=== PATIENT | female | born 1965 | race African-American/Black ===

== ENCOUNTER 2023-12-12 02:33 | Outpatient (CLI) | payer MEDICAID, SELFPAY | END 2023-12-12 02:34 | disposition home or self-care (01) | LOC: AMB 12-22 11:41 | PROVIDERS: PCP Family Medicine; Visit Provider Family Medicine | DX: R06.09 Other forms of dyspnea (principal); R13.10 Dysphagia, unspecified | CPT/HCPCS: A0425; A0429 ==

== ENCOUNTER 2023-12-12 03:16 | Emergency (ER) | payer MEDICAID, SELFPAY ==
[2023-12-12 03:20] VITALS: O2SAT 93
--- NOTE | 2023-12-12 03:20 | CT_ITS ---
Patient: KACIE KUMAR Facility:?[facility] [place] [facility] Patient ID:?[id number] Site Patient ID:?[id number]. Site :?[id number] Study:?CT-ST Neck W/99CC [id number]/26/2024 4:16:39 AM Ordering Physician:MIMA Final Report: Indication: Difficulty swallowing, tongue swelling Technique: CT neck soft tissue with IV contrast. Multiplanar reformats are included. Contrast: 99 mL Isovue 370 Comparison: None Findings: Enlarged hyperenhancing adenoids, palatine tonsils, and lingual tonsils. No abscess. No retropharyngeal effusion. Mild crowding of the posterior oropharyngeal airway without complete airway obstruction. Reactive adenopathy in both sides of the neck. There is a 2.5 centimeter right thyroid nodule. The remainder of the exam is unremarkable. The epiglottis and subglottic trachea are normal. Normal CT appearance of the tongue. Impression: Adenoiditis and tonsillitis. No abscess. Please note that all CT scans at this facility use dose modulation, iterative reconstruction, and/or weight-based dosing when appropriate to reduce radiation dose to as low as reasonably achievable. Dictated by Taisha Bautista MD @ 12/12/2023 4:42:13 AM Signed by:?Taisha Bautista MD @12/12/2023 4:42:13 AM (Electronic Signature)
[2023-12-12 03:22] VITALS: BP 153/92; BP 153/93; PULSE 83; PULSE 85; RESP 20; RESP 22; TEMP 37.3; O2SAT 89; O2SAT 92; BMI 34.8
--- NOTE | 2023-12-12 03:24 | ED_ITS ---
HPI - General Adult General Time Seen by Provider: 03:24 Date Seen: 12/12/23 Chief complaint: Shortness of Breath/Dyspnea Stated complaint: difficulty swallowing, short of breath Time Seen by Provider: 12/12/23 03:20 Source: patient, EMS and RN notes reviewed Mode of arrival: EMS Limitations: no limitations History of Present Illness HPI narrative: 50-year-old female who comes in today with right-sided neck pain that started last night. Pain with swallowing, feels like her throat is swollen. Denies voice changes, fevers, chills. No new medications. History of COPD, hypertension, diabetes. Related Data Home Medications Medication Instructions Recorded Confirmed aspirin 81 mg capsule 81 mg PO DAILY 12/12/23 12/12/23 atenolol 100 mg tablet 100 mg PO DAILY 12/12/23 12/12/23 atorvastatin 10 mg tablet 10 mg PO QHS 12/12/23 12/12/23 chlorthalidone 50 mg tablet 50 mg PO DAILY 12/12/23 12/12/23 glipizide 10 mg tablet 10 mg PO DAILY 12/12/23 12/12/23 ipratropium bromide 21 mcg (0.03 2 spray intranasal BID PRN 12/12/23 12/12/23 %) nasal spray spironolactone 50 mg tablet 50 mg PO DAILY 12/12/23 12/12/23 tiotropium bromide 2.5 2 inh inhalation DAILY 12/12/23 12/12/23 mcg/actuation mist for inhalation (Spiriva Respimat) Allergies Allergy/AdvReac Type Severity Reaction Status Date / Time diphenhydramine Allergy Severe Face and Verified 12/12/23 04:18 [From Benadryl] Throat Swelling lisinopril Allergy Intermediate Facial Verified 12/12/23 04:18 Swelling [facility] Medical History (Updated 12/12/23 @ 04:51 by Joselo Murphy MD) Thrombocytopenia ?D69.6 - Thrombocytopenia, unspecified (ICD-10) Acute respiratory failure with hypoxia ?J96.01 - Acute respiratory failure with hypoxia (ICD-10) Menometrorrhagia ?N92.1 - Excessive and frequent menstruation with irregular cycle (ICD-10) Uterine leiomyoma ?D25.9 - Leiomyoma of uterus, unspecified (ICD-10) Anemia ?D64.9 - Anemia, unspecified (ICD-10) Vitamin D deficiency ?E55.9 - Vitamin D deficiency, unspecified (ICD-10) Type 2 diabetes mellitus ?E11.9 - Type 2 diabetes mellitus without complications (ICD-10) Hypertension ?I10 - Essential (primary) hypertension (ICD-10) Surgical History (Updated 12/12/23 @ 03:37 by Alexis Lockhart RN) History of total abdominal hysterectomy ?Z90.710 - Acquired absence of both cervix and uterus (ICD-10) History of salpingoophorectomy ?Z90.79 - Acquired absence of other genital organ(s) (ICD-10) ?Z90.721 - Acquired absence of ovaries, unilateral (ICD-10) History of arthroscopic knee surgery ?Z98.890 - Other specified postprocedural states (ICD-10) History of section ?Z98.891 - History of uterine scar from previous surgery (ICD-10) History of appendectomy ?Z90.49 - Acquired absence of other specified parts of digestive tract (ICD- 10) S/P BRIDGER-BSO (total abdominal hysterectomy and bilateral salpingo-oophorectomy) ?Z90.710 - Acquired absence of both cervix and uterus (ICD-10) ?Z90.722 - Acquired absence of ovaries, bilateral (ICD-10) ?Z90.79 - Acquired absence of other genital organ(s) (ICD-10) Social History Smoking Status: Former smoker Second hand tobacco smoke exposure: No How often do you have a drink containing alcohol: never AUDIT-C Alcohol total score: 0 Non-prescribed substance use: former substance user Exam Narrative: Exam Narrative: General: Well-developed and well-nourished, no acute distress Head: Atraumatic and normocephalic Eyes: Pupils are equal reactive, extraocular motions intact, conjunctiva clear ENT: External nose and ears are normal, mild symmetric swelling of the posterior oropharynx, poorly visualized due to base of the tongue obscuring Neck: No midline cervical tenderness, full spontaneous range of motion the neck, trachea midline, tender adenopathy on the right Heart: Regular rate and rhythm no murmurs or thrills Lungs: Clear to auscultation bilaterally without wheezes or crackles Abdomen: Soft, nontender, nondistended with active bowel sounds Musculoskeletal: No tenderness, deformity, or edema Neurologic: Awake, alert, and oriented x3, no gross focal neurologic deficits, cranial nerves intact as tested Psych: Mood and affect are appropriate Skin: No rashes Const: Vital Signs, click to edit/add: Vital Signs - 24 hr 12/12/23 03:20 12/12/23 03:20 12/12/23 03:22 Temperature 99.1 F Pulse Rate Pulse Rate [Right Pulse Oximeter] 83 Respiratory Rate 22 Blood Pressure Blood Pressure [Ri ght Upper Arm] 153/93 H Pulse Oximetry 93 93 89 Oxygen Delivery Me thod Nasal Cannula Room Air Oxygen Flow Rate 1 12/12/23 03:22 Temperature Pulse Rate 85 Pulse Rate [Right Pulse Oximeter] Respiratory Rate 20 Blood Pressure 153/92 H Blood Pressure [Ri ght Upper Arm] Pulse Oximetry 92 Oxygen Delivery Me thod Oxygen Flow Rate Course Course ED Course: Patient seen examined, prior records reviewed. Patient presents with sensation of throat swelling and throat pain predominantly on the right side starting last night. On exam here, no voice changes, pain with swallowing but handling secretions, no lip or tongue swelling, anterior cervical adenopathy on the right. Concern for possible epiglottitis although patient is nontoxic and not having respiratory difficulty. Strep throat or peritonsillar abscess also possible. Labs are ordered along with CT scan of the neck. Toradol and Decadron ordered in will monitor closely. DuoNeb ordered as patient says she feels little short of breath does have some expiratory wheeze Reevaluation(s) Time of Reevaluation #1: 04:06 Reevaluation #1: Labs ordered in the panel interpreted by me demonstrate white count of 18.5, respiratory panel and basic panel pending. Time of Reevaluation #2: 04:22 Reevaluation #2: CT scan of the neck independently interpreted by me does not demonstrate any peritonsillar abscess, airway is widely patent. Basic panel is reassuring of a glucose of 266. Strep test is positive. Patient will be given Zosyn in the emergency department and discharged on Augmentin, follow-up with primary care. Consider steroid but given hyperglycemia and patient has known diabetes, as well as fairly mild swelling on exam and CT, concern for risk hyperglycemia awaiting benefit. Patient was given Decadron in the emergency department. Vital Signs Vital signs: Initial Vital Signs Respiratory Effort Normal, Spontaneous, Non-Labored 12/12/23 03:20 Respiratory Depth Normal 02/26/24 03:20 Respiratory Pattern Normal 12/12/23 03:20 Pulse Oximetry 93 12/12/23 03:20 Oxygen Delivery Method Nasal Cannula 12/12/23 03:20 Oxygen Flow Rate 1 12/12/23 03:20 Vital Signs Pulse Oximetry 93 12/12/23 03:20 Oxygen Delivery Method Nasal Cannula 12/12/23 03:20 Oxygen Flow Rate 1 12/12/23 03:20 Temperature 99.1 F 12/12/23 03:22 Pulse Rate 83 12/12/23 03:22 Respiratory Rate 20 12/12/23 03:22 Blood Pressure 153/93 H 12/12/23 03:22 Pulse Oximetry 92 12/12/23 03:22 Oxygen Delivery Method Room Air 12/12/23 03:22 Oxygen Flow Rate 1 12/12/23 03:20 Medications Administered Medications: Generic Name Dose Route Start Last Admin Trade Name Freq PRN Reason Stop Dose Admin Piperacillin Sod/Tazobactam 100 mls @ 100 mls/hr 12/12/23 04:22 12/12/23 04:28 Sod 3.375 gm/ Sodium Chloride IVPB 12/12/23 04:23 100 mls/hr ONCE ONE Administration Discontinued Medications Generic Name Dose Route Start Last Admin Trade Name Freq PRN Reason Stop Dose Admin Albuterol/Ipratropium 1 neb 12/12/23 03:30 12/12/23 04:28 Iprat-Albut 0.5-2.5 Mg/3 Ml Neb IH 12/12/23 03:31 1 neb ONCE ONE Administration Dexamethasone 10 mg 12/12/23 03:20 12/12/23 03:34 Dexamethasone 10 Mg/Ml Inj IVP 12/12/23 03:21 10 mg ONCE ONE Administration Ketorolac Tromethamine 15 mg 12/12/23 03:20 12/12/23 03:34 Ketorolac 15 Mg/Ml Inj IVP 12/12/23 03:21 15 mg ONCE ONE Administration Medical Decision Making Lab Data Labs: Lab Results 12/12/23 12/12/23 12/12/23 Range/Units 03:20 03:21 03:45 WBC 18.51 H (4.50-11.00) K/uL RBC 4.86 (4.00-5.20) m/uL Hgb 14.6 (12.0-16.0) gm/dL Hct 43.7 (33.0-51.0) % MCV 90 (80-100) fL MCH 30 (26-34) pg MCHC 33 (32-36) gm/dL RDW Coeff of Michael 11.7 (11.5-15.5) % Plt Count 257 (140-440) K/uL Neut % (Auto) 68.7 (42.0-72.0) % Lymph % (Auto) 20.5 (20-44) % [place] % (Auto) 8.8 (0.0-11.0) % Eos % (Auto) 1.0 (0.0-7.0) % Baso % (Auto) 0.2 (0.0-3.0) % Neut # (Auto) 12.70 H (1.7-7.0) K/uL Lymph # (Auto) 3.80 H (0.90-2.90) K/uL [place] # (Auto) 1.60 H (0.00-0.90) K/UL Eos # (Auto) 0.20 (0.00-0.50) K/uL Baso # (Auto) 0.00 (0.00-0.30) K/uL Abs Immat Gran (auto) 0.10 (0.00-0.30) K/uL Imm/Tot Granulo (auto) 0.8 % Sodium 138 (135-149) mmol/L Potassium 3.5 L (3.6-5.1) mmol/L Chloride 101 (96-114) mmol/L Carbon Dioxide 26 (20-32) mmol/L Anion Gap 11 (7-15) mEq/L BUN 21 (7-30) mg/dL Creatinine 0.9 (0.5-1.5) mg/dL Estimated Creat Clear 58.84 Estimated GFR 74 ml/min Glucose 266 H (60-115) mg/dL Calcium 10.1 (8.4-10.6) mg/dL SARS-CoV-2 (PCR) Negative SARS-CoV-2 (Negative) Influenza Type A (PCR) Negative PCR FLU A (Negative) Influenza Type B (PCR) Negative PCR FLU B (Negative) RSV (PCR) Negative PCR RSV (Negative) Group A Strep DNA DETECTED A (Not Detectd) POC Creatinine (0.6-1.3) mg/dl 12/12/23 Range/Units 03:48 WBC (4.50-11.00) K/uL RBC (4.00-5.20) m/uL Hgb (12.0-16.0) gm/dL Hct (33.0-51.0) % MCV (80-100) fL MCH (26-34) pg MCHC (32-36) gm/dL RDW Coeff of Michael (11.5-15.5) % Plt Count (140-440) K/uL Neut % (Auto) (42.0-72.0) % Lymph % (Auto) (20-44) % [place] % (Auto) (0.0-11.0) % Eos % (Auto) (0.0-7.0) % Baso % (Auto) (0.0-3.0) % Neut # (Auto) (1.7-7.0) K/uL Lymph # (Auto) (0.90-2.90) K/uL [place] # (Auto) (0.00-0.90) K/UL Eos # (Auto) (0.00-0.50) K/uL Baso # (Auto) (0.00-0.30) K/uL Abs Immat Gran (auto) (0.00-0.30) K/uL Imm/Tot Granulo (auto) % Sodium (135-149) mmol/L Potassium (3.6-5.1) mmol/L Chloride (96-114) mmol/L Carbon Dioxide (20-32) mmol/L Anion Gap (7-15) mEq/L BUN (7-30) mg/dL Creatinine (0.5-1.5) mg/dL Estimated Creat Clear Estimated GFR ml/min Glucose (60-115) mg/dL Calcium (8.4-10.6) mg/dL SARS-CoV-2 (PCR) (Negative) Influenza Type A (PCR) (Negative) Influenza Type B (PCR) (Negative) RSV (PCR) (Negative) Group A Strep DNA (Not Detectd) POC Creatinine 1.0 (0.6-1.3) mg/dl Discharge Plan Discharge Clinical Impression: Acute streptococcal pharyngitis, Acute tonsillitis Patient Disposition: Home, Self-Care Condition: Stable Instructions: Strep Throat (DC) Activity Level: No Restrictions Discharge Diet: Regular Prescriptions: No Action atorvastatin 10 mg tablet 10 mg PO QHS atenolol 100 mg tablet 100 mg PO DAILY spironolactone 50 mg tablet 50 mg PO DAILY glipizide 10 mg tablet 10 mg PO DAILY chlorthalidone 50 mg tablet 50 mg PO DAILY aspirin 81 mg capsule 81 mg PO DAILY ipratropium bromide 21 mcg (0.03 %) spray,non-aerosol 2 spray intranasal BID PRN Rx Instructions: administer into each nostril Spiriva Respimat 2.5 mcg/actuation mist 2 inh inhalation DAILY Follow Up/Referrals: Néstor Spears MD [Primary Care Provider] - Stand Alone Forms: [facility] Info Instructions
[2023-12-12] MEDS: dexAMETHasone 10 MG/ML inj IVP (03:34)
[2023-12-12] MEDS: KETOROLAC 15 MG/ML inj IVP (03:34)
[2023-12-12 03:58] LABS: Basophils Percent Auto 0.2 % (0.0-3.0); Hematocrit 43.7 % (33.0-51.0); Hemoglobin* 14.6 gm/dL (12.0-16.0); Immature Granulocytes Pct Auto 0.8 %; Lymphocytes Percent Auto 20.5 % (20-44); Mean Corpuscular HGB Conc 33 gm/dL (32-36); Mean Corpuscular Hemoglobin 30 pg (26-34); Mean Corpuscular Volume 90 fL (80-100); Monocytes Percent Auto 8.8 % (0.0-11.0); Neutrophils Percent Auto 68.7 % (42.0-72.0); Platelet Count* 257 K/uL (140-440); RDW Coefficient of Variation % 11.7 % (11.5-15.5); Red Blood Count 4.86 m/uL (4.00-5.20); White Blood Count* 18.51 K/uL (4.50-11.00)
[2023-12-12 03:59] LABS: Slide Review Reflex No
[2023-12-12 04:12] LABS: Chloride* 101 mmol/L (96-114)
[2023-12-12 04:13] LABS: Potassium* 3.5 mmol/L (3.6-5.1); Sodium* 138 mmol/L (135-149)
[2023-12-12 04:15] LABS: Creatinine* 0.9 mg/dL (0.5-1.5); Est. Creatinine Clearance* 58.84; Estimated Glomerular Filt Rate 74 ml/min
[2023-12-12 04:16] LABS: Anion Gap 11 mEq/L (7-15); Blood Urea Nitrogen* 21 mg/dL (7-30); Calcium* 10.1 mg/dL (8.4-10.6); Carbon Dioxide* 26 mmol/L (20-32); Glucose* 266 mg/dL (60-115)
[2023-12-12 04:20] LABS: Strep A DNA Probe* DETECTED (Not Detectd)
[2023-12-12] MEDS: IPRAT-ALBUT 0.5-2.5 MG/3 ML NEB 1 NEB IH (04:28)
[2023-12-12] MEDS: PIPERACILLIN/TAZOBACTAM 3.375 GM in 0.9 % SODIUM CHLORIDE Mini-bag 100 ML IVPB (04:28)
[2023-12-12 04:35] LABS: PCR FLU A Negative PCR FLU A (Negative); PCR FLU B Negative PCR FLU B (Negative); PCR RSV Negative PCR RSV (Negative); SARS PCR* Negative SARS-CoV-2 (Negative)
[2023-12-12 04:58] VITALS: TEMP 37.3
[2023-12-12 06:01] VITALS: BP 135/78; PULSE 87; RESP 20; TEMP 37.3; O2SAT 92
== END 2023-12-12 07:48 | disposition home or self-care (01) ==
PROVIDERS: Emergency Provider Family Medicine; PCP Family Medicine
DX: J02.0 Streptococcal pharyngitis (principal)
CPT/HCPCS: 36415; 70491; 80048; 82565; 85025; 87631; 87651; 94640; 94761; 96365; 96375; 99284; 99285; J1100; J1885; J2543; Q9967

== ENCOUNTER 2024-03-16 18:20 | Emergency (ER) | payer OTHER, SELFPAY ==
[2024-03-16 18:24] VITALS: BP 153/84; PULSE 83; RESP 20; TEMP 36.4; O2SAT 90; BMI 40.4
[2024-03-16 18:32] LABS: Appearance Urine Cloudy (Clear); Bilirubin Urine 1+ (Negative); Blood Urine 3+ (Negative); Color Urine Brown (Yellow); Glucose Urine Negative (Negative); Ketones Urine Trace (Negative); Leukocyte Esterase Urine Negative (Negative); Nitrite Urine Negative (Negative); Protein Urine 2+ (Negative); Specific Gravity Urine 1.025 (1.000-1.030); pH Urine 5.5 (5.0-8.5)
[2024-03-16 18:41] LABS: Bacteria Urine Moderate; RBC Urine 25-50 (0-2); Squamous Epithelial Cell Urine Moderate (None-Few)
[2024-03-16 18:42] LABS: Amorphous Sediment Urine Many
--- NOTE | 2024-03-16 18:44 | CRLHL7_ITS ---
For Patients: As a result of the Century Cures Act, medical imaging exams and procedure reports are released immediately into your electronic medical record. You may view this report before your referring provider. If you have questions, please contact your health care provider. INDICATION: Right flank pain, hematuria COMPARISON: None available TECHNIQUE: Routine axial CT images of the abdomen and pelvis were obtained without the use of intravenous or oral contrast per routine renal stone protocol. FINDINGS: 2 mm focal calcification at the right UVJ associated with mild ureterectasis and mild pelvicaliectasis. No left-sided hydronephrosis or ureterectasis. No definite urinary bladder calculi. Urinary bladder is decompressed. Noncontrast examination significantly limits evaluation of solid organs and intravascular structures. Morbid obesity. Diffuse hepatic steatosis and hepatomegaly. Tiny subcentimeter low-attenuation lesion in posterior right hepatic lobe most likely a tiny cyst and a larger cyst seen higher up in the right hepatic lobe in segment 7. Severe motion artifact in the lung bases, with mild appearing fibrosis. No pleural effusion. The adrenal glands, gallbladder, and spleen appear unremarkable. No peripancreatic fluid collection or stranding. No bowel obstruction. No obvious abnormality involving the prostate gland. No suspicious adenopathy. No abdominal aortic aneurysm. Mild atherosclerotic changes in the abdominal aorta. Subtle hypo attenuating focus in the anterior aspect of the L4 vertebral body, measuring 6 mm, nonspecific. IMPRESSION: 1. 2 mm right UVJ calcification, with mild ureterectasis and pelvocaliectasis. 2. Severe diffuse hepatic steatosis and hepatomegaly. 3. Subtle hypo attenuating focus in the anterior aspect of the L4 vertebral body, measuring 6 mm, nonspecific. Consider a follow-up CT or MRI if no prior available to document stability. Please note that all CT scans at this facility use dose modulation, iterative reconstruction, and/or weight-based dosing when appropriate to reduce radiation dose to as low as reasonably achievable. Dictated by Bart Kraft MD @ 03/16/2024 8:02:32 PM (Electronically Signed)
--- NOTE | 2024-03-16 18:46 | ED.GENADULT ---
HPI - General Adult General Chief complaint: Flank Pain Stated complaint: R flank pain Time Seen by Provider: 03/16/24 18:38 Source: patient and RN notes reviewed Mode of arrival: ambulatory Limitations: no limitations History of Present Illness HPI narrative: Patient is a 58-year-old woman who presents with some right-sided flank and low back pain, lower abdominal cramping, and brown urine since yesterday. She has not had dysuria, urgency or frequency. She has tried some ibuprofen. 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 She has not had nausea, vomiting, fevers. No history of kidney stones or significant UTIs. She status post hysterectomy. Past medical history of hypertension and diabetes. She does not drink. Related Data Home Medications ?Medication ?Instructions ?Recorded ?Confirmed aspirin 81 mg capsule 81 mg PO DAILY 12/12/23 03/16/24 atenolol 100 mg tablet 100 mg PO DAILY 12/12/23 03/16/24 atorvastatin 10 mg tablet 10 mg PO QHS 12/12/23 03/16/24 chlorthalidone 50 mg tablet 50 mg PO DAILY 12/12/23 03/16/24 glipizide 10 mg tablet 10 mg PO DAILY 12/12/23 03/16/24 ipratropium bromide 21 mcg (0.03 2 spray intranasal BID PRN 12/12/23 03/16/24 %) nasal spray spironolactone 50 mg tablet 50 mg PO DAILY 12/12/23 03/16/24 tiotropium bromide 2.5 2 inh inhalation DAILY 12/12/23 03/16/24 mcg/actuation mist for inhalation (Spiriva Respimat) Allergies Allergy/AdvReac Type Severity Reaction Status Date / Time diphenhydramine Allergy Severe Face and Verified 03/16/24 18:31 [From Benadryl] Throat Swelling lisinopril Allergy Intermediate Facial Verified 03/16/24 18:31 Swelling Review of Systems Status of ROS: Reports: 10 or more systems reviewed and unremarkable except as noted in History and below [facility] Medical History Thrombocytopenia ?D69.6 - Thrombocytopenia, unspecified (ICD-10) Acute respiratory failure with hypoxia ?J96.01 - Acute respiratory failure with hypoxia (ICD-10) Menometrorrhagia ?N92.1 - Excessive and frequent menstruation with irregular cycle (ICD-10) Uterine leiomyoma ?D25.9 - Leiomyoma of uterus, unspecified (ICD-10) Anemia ?D64.9 - Anemia, unspecified (ICD-10) Vitamin D deficiency ?E55.9 - Vitamin D deficiency, unspecified (ICD-10) Type 2 diabetes mellitus ?E11.9 - Type 2 diabetes mellitus without complications (ICD-10) Hypertension ?I10 - Essential (primary) hypertension (ICD-10) Surgical History History of total abdominal hysterectomy ?Z90.710 - Acquired absence of both cervix and uterus (ICD-10) History of salpingoophorectomy ?Z90.79 - Acquired absence of other genital organ(s) (ICD-10) ?Z90.721 - Acquired absence of ovaries, unilateral (ICD-10) History of arthroscopic knee surgery ?Z98.890 - Other specified postprocedural states (ICD-10) History of section ?Z98.891 - History of uterine scar from previous surgery (ICD-10) History of appendectomy ?Z90.49 - Acquired absence of other specified parts of digestive tract (ICD-10) S/P BRIDGER-BSO (total abdominal hysterectomy and bilateral salpingo-oophorectomy) ?Z90.710 - Acquired absence of both cervix and uterus (ICD-10) ?Z90.722 - Acquired absence of ovaries, bilateral (ICD-10) ?Z90.79 - Acquired absence of other genital organ(s) (ICD-10) Social History Smoking Status: Former smoker Do you use any of these nicotine containing products: None Second hand tobacco smoke exposure: No How often do you have a drink containing alcohol: never AUDIT-C Alcohol total score: 0 Non-prescribed substance use: former substance user Exam Narrative: Exam Narrative: Vital signs as noted above. In general, an alert, nontoxic woman. Head: Normocephalic, atraumatic. Eyes: Pupils are equal reactive. Extraocular movements are full. Conjunctivae are normal. ENT: Mucous membranes are moist. Throat is normal. Neck: Supple without lymphadenopathy. Heart: Regular rate and rhythm. No murmur or rub. Lungs: Clear bilaterally. No increased work of breathing, crackles or wheezes. No CVA tenderness. Abdomen: Soft and nontender. Extremities: Well perfused. No edema. No calf tenderness. Pulses intact. Neurologic: Patient is alert and oriented to person and place. Speech is fluent. Face is symmetric. Moves all extremities equally. Affect: Normal. Skin: Warm and dry. Well perfused. Const: Vital Signs, click to edit/add: Vital Signs - 24 hr 03/16/24 18:24 Temperature 97.6 F Pulse Rate [Pulse Oximeter] 83 Respiratory Rate 20 Blood Pressure [Le ft Upper Arm] 153/84 H Pulse Oximetry 90 Oxygen Delivery Me thod Room Air Course Course ED Course: Urinalysis was obtained. Diagnostic considerations include but are not limited to pyelonephritis, UTI, kidney stone, biliary colic, hepatitis, cholecystitis, appendicitis. Given her history, I am most suspicious of kidney stone, have ordered a CT scan without contrast. If this is negative for kidney stone, consider other diagnoses. Toradol 30 mg IM ordered for pain control. CT of the abdomen read as following by Radiology: FINDINGS: 2 mm focal calcification at the right UVJ associated with mild ureterectasis and mild pelvicaliectasis. No left-sided hydronephrosis or ureterectasis. No definite urinary bladder calculi. Urinary bladder is decompressed. Noncontrast examination significantly limits evaluation of solid organs and intravascular structures. Morbid obesity. Diffuse hepatic steatosis and hepatomegaly. Tiny subcentimeter low-attenuation lesion in posterior right hepatic lobe most likely a tiny cyst and a larger cyst seen higher up in the right hepatic lobe in segment 7. Severe motion artifact in the lung bases, with mild appearing fibrosis. No pleural effusion. The adrenal glands, gallbladder, and spleen appear unremarkable. No peripancreatic fluid collection or stranding. No bowel obstruction. No obvious abnormality involving the prostate gland. No suspicious adenopathy. No abdominal aortic aneurysm. Mild atherosclerotic changes in the abdominal aorta. Subtle hypo attenuating focus in the anterior aspect of the L4 vertebral body, measuring 6 mm, nonspecific. IMPRESSION: 1. 2 mm right UVJ calcification, with mild ureterectasis and pelvocaliectasis. 2. Severe diffuse hepatic steatosis and hepatomegaly. 3. Subtle hypo attenuating focus in the anterior aspect of the L4 vertebral body, measuring 6 mm, nonspecific. Consider a follow-up CT or MRI if no prior available to document stability. Findings discussed with patient: I neglected to discuss the L4 finding with her prior to discharge but did talk to her by phone. Suspect this stone will pass without instrumentation the did give her the number for Urology if symptoms do not improve over the next couple of days. Recommend ibuprofen 400 mg 3 times daily with food, she declines need for anything for nausea. For new symptoms such as severe uncontrolled pain, vomiting, fever chills, return any time to the emergency department. Primary care follow-up regarding L4 finding. Vital Signs Vital signs: Initial Vital Signs Temperature 97.6 F 03/16/24 18:24 Temperature Source Temporal Artery Scan 03/16/24 18:24 Pulse Rate 83 03/16/24 18:24 Pulse Rhythm Regularly Irregular 03/16/24 18:24 Respiratory Rate 20 03/16/24 18:24 Blood Pressure 153/84 H 03/16/24 18:24 Blood Pressure Mean 107 H 03/16/24 18:24 Blood Pressure Position Supine 03/16/24 18:24 Pulse Oximetry 90 03/16/24 18:24 Oxygen Delivery Method Room Air 03/16/24 18:24 Vital Signs Temperature 97.6 F 03/16/24 18:24 Pulse Rate 83 03/16/24 18:24 Respiratory Rate 20 03/16/24 18:24 Blood Pressure 153/84 H 03/16/24 18:24 Pulse Oximetry 90 03/16/24 18:24 Oxygen Delivery Method Room Air 03/16/24 18:24 Temperature 97.6 F 03/16/24 18:24 Pulse Rate 83 03/16/24 18:24 Respiratory Rate 20 03/16/24 18:24 Blood Pressure 153/84 H 03/16/24 18:24 Pulse Oximetry 90 03/16/24 18:24 Oxygen Delivery Method Room Air 03/16/24 18:24 Medications Administered Medications: Discontinued Medications Generic Name Dose Route Start Last Admin Trade Name Freq PRN Reason Stop Dose Admin Ketorolac Tromethamine 30 mg 03/16/24 18:44 03/16/24 18:51 Ketorolac 30 Mg/Ml Inj IM 03/16/24 18:45 30 mg ONCE ONE Administration Medical Decision Making Lab Data Labs: Lab Results 03/16/24 Range/Units 18:27 Urine Color Brown A (Yellow) Urine Appearance Cloudy A (Clear) Urine pH 5.5 (5.0-8.5) Ur Specific [place] 1.025 (1.000-1.030) Urine Protein 2+ A (Negative) Urine Glucose (UA) Negative (Negative) Urine Ketones Trace A (Negative) Urine Blood 3+ A (Negative) Urine Nitrite Negative (Negative) Urine Bilirubin 1+ A (Negative) Urine Urobilinogen 1.0 (0.2-1.0) Ur Leukocyte Esterase Negative (Negative) Urine RBC 25-50 A (0-2) Urine WBC 2-5 (0-5) Ur Squamous Epith Cells Moderate A (None-Few) Amorphous Sediment Many A (None) Urine Bacteria Moderate A (None) Discharge Plan Discharge Clinical Impression: Calculus of distal right ureter Patient Disposition: Home, Self-Care Condition: Improved Instructions: Ureteral Stones (ED) Additional Instructions: Continue with ibuprofen as needed. You have a small kidney stone, 2 mm in size. I would expect that this will pass without difficulty over the next few days. Strain your urine, make sure you are drinking plenty of fluids. If symptoms do not improve over the next few days, follow-up with urology. Call [phone] if you need to schedule with Urology. For severe uncontrolled pain, new symptoms such as vomiting, fever, return to the emergency department. Prescriptions: No Action atorvastatin 10 mg tablet 10 mg PO QHS atenolol 100 mg tablet 100 mg PO DAILY spironolactone 50 mg tablet 50 mg PO DAILY glipizide 10 mg tablet 10 mg PO DAILY chlorthalidone 50 mg tablet 50 mg PO DAILY aspirin 81 mg capsule 81 mg PO DAILY ipratropium bromide 21 mcg (0.03 %) spray,non-aerosol 2 spray intranasal BID PRN Rx Instructions: administer into each nostril Spiriva Respimat 2.5 mcg/actuation mist 2 inh inhalation DAILY Follow Up/Referrals: Néstor Spears MD [Primary Care Provider] - Stand Alone Forms: [employer] Info Instructions
[2024-03-16] MEDS: KETOROLAC 30 MG/ML inj IM (18:51)
--- OUTSIDE RECORDS SUMMARY | 2024-03-16 19:04 | XMS_ITS ---
Author Organization [facility] Address [address] [place] [id number] Care Team Providers Care Stapler Machine Name Role Phone Unavailable Unavailable Unavailable Surgery Details Not on file Complications Check Surgery Details section. Procedure Estimated Blood Loss Check Surgery Details section. Procedure Findings Check Surgery Details section. Procedure Specimens Taken Check Surgery Details section.
--- OUTSIDE RECORDS SUMMARY | 2024-03-16 19:04 | XMS_ITS | Referral Summary ---
Author Organization [facility] Address [address] [place] [address] Care Team Providers Care Casing Mixer Name Role Phone Néstor Spears M.D. Primary Care Provider [phone] Source Comments Patient records contain information from all sites at [facility]. For routine questions regarding patient records, call [phone] during business hours, M-F 8:00 AM - 5:00 PM Central Time. Record requests for emergency care only can be directed to [phone] at any time.[facility] Encounters Date Type Department Care Team Description 03/13/2024 Clinical Communication Department of Family Medicine, [facility], [address] [phone] Nehal Blevins R.N. Quality (D5) 03/08/2024 Clinical Communication Department of Family [facility], [facility], [address] [phone] Néstor Spears M.D. PandaDoc Form ([facility] - [id number]) 03/02/2024 Clinical Communication Department of Family [facility], [facility], [address] [phone] Néstor Spears M.D. PandaDoc Form ([facility] 02/27 ) 02/29/2024 Clinical Communication Department of Family Medicine, [facility], [address] [phone] Néstor Spears M.D. Med Question ([facility]); Follow-up Orders 02/27/2024 10:43 AM CDT - 02/27/2024 10:44 AM CDT Hospital Encounter Department of Radiology in [place], [place] [address] [place] [address] Néstor Spears M.D. Abnormal Mammogram Discharge Disposition: Home or Self Care 02/17/2024 Orders Only Department of Family Medicine, [facility], in [place], [place] [address] [place] [address] Néstor Spears M.D. Screening Cancer Colon 02/16/2024 11:00 AM CDT Office Visit Department of Family [facility], in [place], [place] [address] [place] [address] Néstor Spears M.D. Diabetes Mellitus Type 2 (HCC) (Primary Dx); Chronic Obstructive Pulmonary Disease Without Exacerbation (HCC); Chronic Respiratory Failure With Hypoxia (HCC); Morbid Obesity Body Mass Index 40.0-44.9 Adult (HCC); Elevated Aldosterone Level (HCC); Hypertension And Chronic Kidney Disease Stage 3; Moderate Or Severe Use Disorder (Dependence) Alcohol Remission (HCC); Screening Cancer Colon 02/13/2024 10:39 AM CDT - 02/13/2024 11:59 PM CDT Hospital Encounter Department of Laboratory Medicine in [place], [place] [address] [place] [address] Néstor Spears M.D. Diabetes Mellitus Type 2 (HCC) Discharge Disposition: Home or Self Care 02/07/2024 Clinical Communication Department of Family Medicine, [facility], in [place], [place] [address] [place] [address] Nehal Blevins R.N. Quality (D5) 01/11/2024 Clinical Communication Department of Family Medicine, [facility], in [place], [place] [address] [place] [address] Néstor Spears M.D. Form Review ([facility] ([facility] [id number] - 01/17/24-03/16/24) 12/27/2023 Clinical Communication Department of Family Medicine, [facility], in [place], [place] [address] [place] [address] Nehal Blevins R.N. Quality (D5) from Last 3 Months Allergies Active Allergy Reactions Criticality Noted Date Comments Benadryl Allergy Decongestant Edema (Reselect Reaction) 06/30/2022 Lisinopril Anaphylaxis,Rash High 10/01/2011 Lisinopril-Hydrochlorothiazi de Edema (Reselect Reaction) 06/30/2022 Medications Medication Sig Dispensed Refills Start Date End Date Status amLODIPine (NORVASC) 10 mg tablet Take 10 mg by mouth daily. [address] tablet Take 1 tablet by mouth daily. 2 Active naloxone (NARCAN) 4 mg/actuation nasal spray as needed. 2 Active nebulizer accessories kit Use as needed with your prescribed nebulizer medicine 2 Active ibuprofen (IBU) 600 mg tablet Take 1 tablet (600 mg total) by mouth every 6 (six) hours as needed for pain. 90 tablet 1 3 Active acetaminophen (TYLENOL) 500 mg tablet Take 1-2 tablets (500-1,000 mg total) by mouth every 6 (six) hours as needed for pain. 90 tablet 1 3 Active InnoSpire Essence device FOR HOME USE 3 Active losartan (COZAAR) 100 mg tablet Take 1 tablet (100 mg total) by mouth daily. 90 tablet 3 3 Active UNABLE TO FIND Oxygen for home use. Liters per minute: 1 per nasal cannula. Frequency of use: Continuous with portability.;. Length of need: 99 Months. Patient needs 3 L/min nasal cannula oxygen when sleeping. 3 Active albuterol 2.5 mg /3 mL nebulizer solution Inhale 3 mL (2.5 mg total) by nebulization every 4 (four) hours as needed for wheezing. 75 mL 3 3 Active atenoloL (TENORMIN) 100 mg tablet Take 1 tablet (100 mg total) by mouth daily. 90 tablet 3 3 Active chlorthalidone (HYGROTON) 50 mg tablet Take 1 tablet (50 mg total) by mouth daily. 90 tablet 3 3 Active flash glucose scanning reader (FreeStyle Tarsha 2 Dickens) misc 1 each (1 Device total) as directed. Diagnosis E11.9 1 each 3 Active ipratropium (ATROVENT) 21 mcg (0.03 %) nasal spray Administer 1-2 sprays into each nostril as needed for rhinitis. 90 mL 3 3 Active tiotropium (SPIRIVA RESPIMAT) 2.5 mcg/actuation inhaler Inhale 2 puffs daily. 4 g 11 3 Active albuterol (ProAir HFA) 90 mcg/actuation inhaler Inhale 2 puffs every 4 (four) hours as needed for wheezing or shortness of breath. 25.5 g 3 3 Active spironolactone (ALDACTONE) 50 mg tablet Take 1 tablet (50 mg total) by mouth daily. 90 tablet 3 3 Active atorvastatin (LIPITOR) 10 mg tablet take one tablet by mouth daily 90 tablet 3 4 Active liraglutide (Victoza 3-Alex) 0.6 mg/0.1 mL (18 mg/3 mL) injection Inject 0.6 mg under the skin daily. 9 mL 4 Active flash glucose sensor (FreeStyle Tarsha 2 Sensor) kit 1 each (1 kit total) every 14 (fourteen) days. Diagnosis E11.9 2 each 11 4 11/21/19 25 Active needle, disp, 25 gauge 25 gauge x 1 1/2 needle Use as instructed 100 each 11 4 Active pen needle, diabetic (BD Ultra-Fine Short Pen Needle) 31 gauge x 5/16 needle Use as directed once daily 100 each 3 4 Active glipiZIDE (GLUCOTROL XL) 10 mg 24 hr tablet Take 2 tablets (20 mg total) by mouth daily with breakfast. E11.9 180 tablet 3 4 Active glipiZIDE (GLUCOTROL XL) 10 mg 24 hr tablet Take 1 tablet (10 mg total) by mouth daily with breakfast. E11.9 90 tablet 3 3 02/16/20 24 Discontinued(Reo rder) sitaGLIPtin phosphate (JANUVIA) 100 mg tablet Take 1 tablet (100 mg total) by mouth daily. 90 tablet 3 3 02/16/20 24 Discontinued semaglutide (Ozempic) 0.25 mg or 0.5 mg (2 mg/3 mL) injection Inject 0.25 mg under the skin every 7 (seven) days. 3 mL 1 4 02/16/20 24 Discontinued(Cos t of medication) Hospital, Clinic, or Other Facility Administered Medication Ordered Dose Route Frequency Start Date End Date Status lidocaine 4 % cream 1 Application (LMX) 1 Application top As needed 08/03/2023 Acti ve Active Problems Problem Noted Date Diagnosed Date Chronic Obstructive Pulmonary Disease Without Ex acerbation 02/16/2024 Chronic Respiratory Failure With Hypoxia 024 Morbid Obesity Body Mass Index 40.0-44.9 Adult 0 02/16/2024 Elevated Aldosterone Level 02/16/2024 Hypertension And Chronic Kidney Disease Stage 3 02/16/2024 Obstructive Sleep Apnea Adult 08/26/2023 Hypoxia Sleep Related 08/26/2023 Diabetes Mellitus Type 2 07/25/2023 Obesity Body Mass Index 30-39.9 Adult 12/31/2022 Moderate Or Severe Use Disor tho (Dependence) Alcohol Remission 12/31/2022 Smoking Tobacco Use Personal History 12/31/2022 Asthma Moderate Persistent 10/22/2022 Stroke Cerebrovascular Accident Personal History 09/14/2022 Other Stimulant Mild Use Disorder (Abuse) In Rem ission 04/27/2022 Hypertension Essential Primary 06/04/2015 Overview: Deficiency Vitamin D 07/17/2012 Resolved Problems Problem Noted Date Diagnosed Date Resolved Date 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 0 12/31/2022 Immunizations Name Administration Dates Next Due HepB Adult 02/16/2024(Deferred: Patient fitz allen) Influenza TIV (IM) 07/12/2012 Influenza, Injectable, Quadrivalent 08/22/2014 Influenza, Seasonal, Injectable 07/12/2012 PCV20 08/06/2022 PPD Test 09/16/2010 RZV (SHINGRIX) 02/16/2024(Deferred: Patient fitz allen) SARS-COV-2 (COVID-19) - PFIZ ER TS(Discontinued)(12 years or older) 08/06/2022 Tdap 04/27/2022,09/16/2010 influenza vaccine QV(FLUBLOK ) (18 years or older) (PF) 08/03/2023 influenza vaccine quad (FLUZONE/FLUARIX) (6 months and older)(PF) 08/06/2022 Social History Tobacco Use Types Packs/Day Years Used Date Smoking Tobacco: Former Cigarettes 0.3 43.9 S tarted: 05/05/1980 Passive Smoke Exposure: Never Smokeless Tobacco: Never Alcohol Use Standard Drinks/Week Comments Never 0 (1 standard drink = 0.6 oz pur e alcohol) Humiliation, Afraid, Rape, and Kick questionnair e Answer Date Recorded Within the last year, have y ou been afraid of your partner or ex-partner? No 08/06/2022 Within the last year, have y ou been humiliated or emotionally abused in other ways by your partner or ex-partner? No Within the last year, have y ou been kicked, hit, slapped, or otherwise physically hurt by your partner or ex-partner? No 08/06/2022 Within the last year, have y ou been raped or forced to have any kind of sexual activity by your partner or ex-partner? No 08/06/2022 Social Connection and Isolat ion Panel [NHANES] Answer Date Recorded In a typical week, how many times do you talk on the phone with family, friends, or neighbors? More than three times a week 08/06/2022 How often do you get togethe r with friends or relatives? Three times a week 08/06/2022 How often do you attend chur or mormon services? More than 4 times per year 08/06/2022 Do you belong to any clubs o r organizations such as confucianism groups, unions, fraternal or athletic groups, or school groups? Yes 08/06/2022 How often do you attend meet ings of the clubs or organizations you belong to? More than 4 times per year 08/06/2022 Are you , , di vorced, , never , or living with a partner? 08/06/2022 AUDIT-C Answer Date Recorded Q1: How often do you have a drink containing alc ohol? Never 08/06/2022 Average Number of Drinks Not on file 022 Frequency of Binge Drinking Not on file 07/18 Overall Financial Resource Strain (CARDIA) Answe r Date Recorded How hard is it for you to pa y for the very basics like food, housing, medical care, and heating? Not hard at all 08/25/2023 PHQ-2 Answer Date Recorded PHQ-2 Score 0 02/16/2024 [facility] - Occupational Stress Questionnaire Answer Date Recorded Do you feel stress - tense, restless, nervous, or anxious, or unable to sleep at night because your mind is troubled all the time - these days? Only a little 08/06/2022 Exercise Vital Sign Answer Date Recorde d On average, how many days pe r week do you engage in moderate to strenuous exercise (like a brisk walk)? 0 days 08/25/2023 On average, how many minutes do you engage in exercise at this level? 20 min 08/25/2023 Hunger Vital Sign Answer Date Recorded Within the past 12 months, y ou worried that your food would run out before you got the money to buy more. Never true 08/25/20 23 Within the past 12 months, t he food you bought just didn't last and you didn't have money to get more. Never true 08/25/2023 PRAPARE - Transportation Answer Date Re corded In the past 12 months, has l ack of transportation kept you from medical appointments or from getting medications? No 06/2023 In the past 12 months, has l ack of transportation kept you from meetings, work, or from getting things needed for daily living? No 08/25/2023 Nutrition Answer Date Recorded On average, how many serving s of fruits and vegetables do you eat per day (serving size is equal to 1 cup or approximately the size of a tennis ball)? 3-5 08/25/2023 Dental Answer Date Recorded Dental: Regular Dentist Yes 08/06/20 22 Employment Answer Date Recorded Employment status Permanently disabled Housing Stability Answer Date Recorded What is your living situation today? I have a [facility] place to live 08/25/2023 Education Answer Date Recorded What is the highest level of school you have completed or the highest degree you have received? 12th grade 03/04/2020 Sex and Gender Information Value Date Recorded Sex Assigned at Female 06/30/2022 1:16 PM CDT Gender Identity Female 06/30/2022 1:16 PM CDT Sexual Orientation Not on file Last Filed Vital Signs Vital Sign Reading Time Taken Comments Blood Pressure 113/72 02/16/2024 10:53 AM CDT Pulse 86 02/16/2024 10:53 AM CDT Temperature 35.8 ??C (96.4 ??F) 02/16/2024 10:53 AM C DT Respiratory Rate 16 02/16/2024 10:53 AM CDT Oxygen Saturation 92% 12/31/2022 11:08 AM CDT Inhaled Oxygen Concentration - - Weight 90.9 kg (200 lb 8.1 oz) 02/16/2024 10:53 AM CDT Height 153.3 cm (5' 0.35) 02/16/2024 10:53 AM C DT Body Mass Index 38.7 02/16/2024 10:53 AM CDT Plan of Treatment Upcoming Encounters Date Type Department Care Team (Late st Contact Info) Description 04/16/2024 2:45 PM CDT Office Visit Department of Family Medicine in [place], [place] [address], [place] [address] Néstor Spears M.D. [address] [place] [phone] Mallika Evangelista, PharmStaciaD., BCACP, R.Ph. [address], [place] [address] Medical Devices Implanted Type Area Press Hand Supervisor Device Identifier Shelf Expiration Date Model / Serial / Lot Hardware E.G. Pins/Screws/Ro ds Hardware e.g. pins/screws/r ods Arm Description:Left arm Procedures Procedure Name Priority Date/Time Associated Diagnosis Comments BI BREAST DIAGNOSTIC LEFT WITH TOMOSYNTHESIS RAD - Routine (most inpatients and all outpatients) 02/27/2024 11:01 AM CDT Abnormal Mammogram HEMOGLOBIN A1C, B Routine 02/13/2024 10: 46 AM CDT Diabetes Mellitus Type 2 (HCC) BASIC METABOLIC PANEL, S/P Routine 10/19/2023 12:32 PM FACE PAINTER Hypertension Essential Primary ALBUMIN, RANDOM, U Routine 07/25/2023 10 :59 AM CDT Diabetes Mellitus Type 2 (HCC) LIPID PANEL, S Routine 08/10/2022 8:17 AM CDT Hyperlipidemia from Last 3 Months or Most Recently Relevant to Health Maintenance Results * BI Breast Diagnostic Left with Tomosynthesis (02/27/2024 11:01 AM CDT) Anatomical Region Laterality Modality Breast, Breast Imaging RST L OS, Breast Imaging ARZ LOS, Breast Imaging FLA LOS Left Mammography Impressions 02/27/2024 11:29 AM CDT No mammographic findings of malignancy. RECOMMENDATION: ??Annual Screening Mammogram ASSESSMENT: ??BI-RADS: 1: Negative. Narrative 02/27/2024 11:29 AM CDT EXAM: ??BI BREAST DIAGNOSTIC LEFT WITH TOMOSYNTHESIS INDICATION: ??Abnormal screening mammogram COMPARISON: ??Prior exam(s) were available and reviewed for comparison. DENSITY: ??c. The breast(s) are heterogeneously dense, which may obscure small masses. FINDINGS: ??Left breast diagnostic mammogram including spot compression and exaggerated CC views show resolution of previous asymmetry into normal fibroglandular tissue. Nothing suspicious. Therefore, ultrasound was not done. The R.T. discussed findings with patient. Procedure Note Nathan Childs M.D. - 02/27/2024 EXAM: BI BREAST DIAGNOSTIC LEFT WITH TOMOSYNTHESIS INDICATION: Abnormal screening mammogram COMPARISON: Prior exam(s) were available and reviewed for comparison. DENSITY: c. The breast(s) are heterogeneously dense, which may obscuresmall masses. FINDINGS: Left breast diagnostic mammogram including spot compression andexaggerated CC views show resolution of previous asymmetry into normalfibroglandular tissue. Nothing suspicious. Therefore, ultrasound was notdone. The R.T. discussed findings with patient. IMPRESSION: No mammographic findings of malignancy. RECOMMENDATION: Annual Screening Mammogram ASSESSMENT: BI-RADS: 1: Negative. Néstor Spears M.D. IMG BI PROCEDURES * (ABNORMAL) Hemoglobin A1c (02/13/2024 10:46 AM CDT) Hemoglobin A1c, B 10.5(H) 4.2 - 5.6 % 02/13/2024 1:48 PM CDT OWAT Comment: Hemoglobin A1c values greater than or equal to 6.5 percent are diagnostic for diabetes mellitus. ??Diagnosis should be confirmed by repeat testing. ??In diabetic patients, HbA1c goals should be discussed with healthcare provider. Blood (Blood, Venous) 02/13/2024 10:46 AM CDT 02/13/2024 1:11 PM CDT Néstor Spears M.D. LAB BLOOD ADD-ON [facility] [address] [place] [address], [facility] OWAT [facility] in [place] [address] [address] * (ABNORMAL) Basic Metabolic Panel (10/19/2023 12:32 PM FACE PAINTER) Potassium, P 4.0 3.6 - 5.2 mmol/L 10/19/2023 5:31 PM FACE PAINTER OWAT Sodium, P 141 135 - 145 mmol/L 10/19/2023 5:31 PM FACE PAINTER OWAT Chloride, P 102 98 - 107 mmol/L 10/19/2023 5:31 PM FACE PAINTER OWAT Bicarbonate, P 28 22 - 29 mmol/L 10/19/2023 5:31 PM FACE PAINTER OWAT Anion Gap, P 11 7 - 15 10/19/2023 5:31 PM FACE PAINTER OWAT BUN (Blood Urea Nitrogen), P 20 6 - 21 mg/dL 10/19/2023 5:31 PM FACE PAINTER OWAT Creatinine 0.80 0.59 - 1.04 mg/dL 10/19/2023 5:31 PM FACE PAINTER OWAT Estimated GFR (eGFR) 85 >=60 mL/min/BSA 10/19/2023 5:31 PM FACE PAINTER OWAT Comment: Estimated GFR calculated using the 2020 CKD_EPI creatinine equation. Calcium, Total, P 9.9 8.6 - 10.0 mg/dL 10/19/2023 5:31 PM FACE PAINTER OWAT Glucose, P 323(H) 70 - 140 mg/dL 10/19/2023 5:31 PM FACE PAINTER OWAT Blood (Blood, Venous) 10/19/2023 12:32 PM FACE PAINTER 10/19/2023 5:31 PM FACE PAINTER Néstor Spears M.D. LAB BLOOD ADD-ON Performing Organization Address City/[facility]/ZIP Co de Phone Number [facility] [address] [place] [address], [facility] OWAT [facility] [place] [address] [place] [phone] * (ABNORMAL) Albumin, Random, Urine (07/25/2023 10:59 AM CDT) Microalbumin 2557.0 mg/L 07/25/2023 2:04 PM CDT OWAT Creatinine 172 mg/dL 07/25/2023 11:48 AM CDT OWAT Albumin/Creatinin e Ratio 1487(H) <25 mg/g 07/25/2023 2:04 PM CDT OWAT Urine (Urine, Midstream) 07/25/2023 10:59 AM CDT 07/25/2023 10:59 AM CDT Néstor Spears M.D. LAB URINE ORDERABLES Performing Organization Address City/[facility]/ZIP Co de Phone Number [facility] [address] [place] [id number], [facility]AT [facility] [place] [address] [place] [address] * (ABNORMAL) Lipid Panel (08/10/2022 8:17 AM CDT) Triglycerides 115 mg/dL 08/10/2022 12:30 PM CDT OWAT Comment: ----REFERENCE VALUE---- Normal: <150 mg/dL Borderline High: 150-199 mg/dL High: 200-499 mg/dL Very High: > or =500 mg/dL Cholesterol, Total 102 mg/dL 2021 12:30 PM CDT OWAT Comment: ----REFERENCE VALUE---- Desirable: < 200 mg/dL Borderline High: 200 - 239 mg/dL High: > or = 240 mg/dL Cholesterol, LDL, Calculated 40 mg/dL 08/10/2022 12:30 PM CDT OWAT Comment: ----REFERENCE VALUE---- Desirable: <100 mg/dL Above Desirable: 100-129 mg/dL Borderline High: 130-159 mg/dL High: 160-189 mg/dL Very High: >=190 mg/dL ----ADDITIONAL INFORMATION---- LDL cholesterol calculated using the Sabillon/NIH equation. Cholesterol, HDL 41(L) >=50 mg/dL 08/10/20 12:30 PM CDT OWAT Cholesterol, Non-HDL, Calculated 61 mg/dL 08/10/2022 12:30 PM CDT OWAT Comment: ----REFERENCE VALUE---- Desirable: <130 mg/dL Above Desirable: 130-159 mg/dL Borderline High: 160-189 mg/dL High: 190-219 mg/dL Very High: > or =220 mg/dL Fasting (8 HR or more) Yes 08/10/2022 11:19 AM CDT OWAT Blood (Blood, Venous) 08/10/2022 8:17 AM CDT 08/10/2022 11:19 AM CDT Néstor Spears M.D. LAB BLOOD ADD-ON [facility] [address] [place] [address], [place] OWAT [facility] [place] [address] [place] [address] from Last 3 Months or Most Recently Relevant to Health Maintenance Care Teams Casing Mixer Relationship Specialty Start Date End Date Néstor Spears M.D. [address] [place] [phone] PCP - General Family Medicine 07/23/22
--- OUTSIDE RECORDS SUMMARY | 2024-03-16 19:04 | XMS_ITS | Clinical Summary ---
Author Organization [facility] Address [address] [place] [address] Care Team Providers Care Paralegal Assistant Name Role Phone Néstor Spears M.D. Primary Care Provider Source Comments Patient records contain information from all sites at [facility]. For routine questions regarding patient records, call [phone] during business hours, M-F 8:00 AM - 5:00 PM Central Time. Record requests for emergency care only can be directed to [phone] at any time.[facility] Allergies Active Allergy Reactions Criticality Noted Date [...] 3 3 Active flash glucose scanning reader (Bioceptive Tarsha 2 [place]) misc 1 each (1 Device total) as [...] Date 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 0 12/31/2022 Encounters Date Type Department Care Team Description 03/13/2024 Clinical Communication Department of Family Medicine, [facility], [address] [phone] Nehal Blevins R.N. Quality (D5) 03/08/2024 Clinical Communication Department of [facility], [address] [phone] Néstor Spears M.D. PandaDoc Form ([facility] - [id number]) 03/02/2024 Clinical Communication Department of [facility], [facility], [address] [phone] Néstor Spears M.D. PandaDoc Form ([facility] order 02/27 ) 02/29/2024 Clinical Communication Department of [facility], [facility], [address] [phone] Néstor Spears M.D. Med Question (Discontinued medication- [facility]); Follow-up Orders 02/27/2024 10:43 AM CDT - 02/27/2024 10:44 AM CDT Hospital Encounter Department of Radiology in [place], [place] [address] [place] [address] Néstor Spears M.D. Abnormal Mammogram Discharge Disposition: Home or Self Care 02/17/2024 [facility] [address] [phone] Néstor Spears M.D. Screening Cancer Colon 02/16/2024 11:00 AM CDT Office Visit Department of [facility], [address] [address] Néstor Spears M.D. Diabetes Mellitus Type 2 [...] CDT Hospital Encounter Department of Laboratory Medicine [address] [address] Néstor Spears M.D. Diabetes Mellitus Type 2 (HCC) Discharge Disposition: Home or Self Care 02/07/2024 Clinical Communication Department of [facility], [address] [address] Nehal Blevins RStaciaNStacia Quality (D5) 01/11/2024 Clinical Communication Department of [facility], [address] [address] Néstor Spears M.D. Form Review ([facility] ([facility] [id number] - 01/17/24-03/16/24) 12/27/2023 Clinical Communication Department of [facility], [address] [address] Nehal Blevins, R.NStacia Quality (D5) from Last 3 Months Immunizations Name Administration Dates Next Due HepB Adult 02/16/2024(Deferred: Patient dec ision) Influenza TIV (IM) 07/12/2012 Influenza, Injectable, Quadrivalent 08/22/2014 Influenza, Seasonal, Injectable 07/12/2012 PCV20 08/06/2022 PPD Test 09/16/2010 RZV (SHINGRIX) 02/16/2024(Deferred: Patient fitz allen) SARS-COV-2 (COVID-19) - PFIZ ER TS(Discontinued)(12 years or older) 08/06/2022 Tdap 04/27/2022,09/16/2010 influenza vaccine QV(FLUBLOK ) (18 years or older) (PF) 08/03/2023 influenza vaccine quad (FLUZONE/FLUARIX) (6 months and older)(PF) 08/06/2022 Family History Medical History Relation Name Comments Stroke Brother 1 Stroke Brother 2 hugh Coronary artery disease Father Breast cancer Mother janna Hypertension Mother janna Stroke Mother janna Breast cancer Mother's Sister Relation Name Status Comments Brother 1 Alive Brother 2 hugh Father Mother janna Mother's Sister Social History Tobacco Use Types Packs/Day Years [...] week 08/06/2022 How often do you attend [facility] or pentecostalism services? More than 4 times per year 08/06/2022 Do you belong to any clubs o r organizations such as rastafari groups, unions, fraternal or athletic groups, or [...] Answer Date Recorded PHQ-2 Score 0 02/16/2024 [facility] - Occupational Stress Questionnaire Answer Date Recorded [...] Date Recorded Dental: Regular Dentist Yes 08/06/20 Employment Answer Date Recorded Employment status Permanently disabled Housing Stability Answer Date Recorded What is your living situation today? I have a [facility] place to live 08/25/2023 Education Answer Date [...] Office Visit Department of Family Medicine in [place], [place] [address] [place] [address] Néstor Spears M.D. [address] [place] [phone] Mallika Evangelista, Pharm.D., BCACP, R.Ph. [address] [place] [address] Health Maintenance Due Date Last Done Comments CT Colonography 1965 Cologuard 1965 Colonoscopy 1965 Colorectal Cancer Screening 1965 Dilated Eye Exam 1965 FIT 1965 Hepatitis C Screening 1965 Hepatitis B Vaccines (1 of 3 - 19+ 3-dose series) 1984 Zoster Vaccines (1 of 2) 2015 Hemoglobin A1C 05/14/2024 02/13/2024, 08/17, 06/14/2023 Urine Albumin 07/25/2024 07/25/2023 Diabetic Office Visit with F oot Exam 10/06/2024 10/06/2023 Creatinine Level (Kidney Fun ction Test) 10/19/2024 10/19/2023, 07/25/2023, 06/14/2023, Additional history exists Potassium Level 10/19/2024 10/19/2023, 10/0 06/2023, 06/14/2023, Additional history exists Sodium Level 10/19/2024 10/19/2023, 10/0 06/2023, 06/14/2023, Additional history exists Office Visit for Blood Press ure Check / Re-check 02/15/2025 02/16/2024 Visit: Chronic Disease, age 18+ 02/15/2025 , 02/16/2024 Mammogram 02/26/2025 02/27/2024, 11/18, 08/12/2022 Lipid (Cholesterol) Screening 08/10/2027 08/10/2022, 04/27/2022 DTaP,Tdap,and Td Vaccines (3 - Td or Tdap) 04/27/2032 04/27/2022, 09/16/2010 Pneumococcal vaccine (0-64 years) Completed 022 COVID-19 Vaccine Completed 08/03/2023, , 06/15/2021 Influenza Vaccine Completed 08/03/2023, , 08/22/2014, Additional history exists Depression Screening (Annual PHQ-2) Completed 02/16/2024, 02/16/2024 Medical Devices Implanted Type Area Container Coordinator Device Identifier Shelf Expiration Date Model / [...] METABOLIC PANEL, S/P Routine 10/19/2023 12:32 PM COFFEE WEIGHER Hypertension Essential Primary ALBUMIN, RANDOM, U Routine [...] CDT Néstor Spears M.D. LAB BLOOD ADD-ON [facility] [address] [place] [address], [place] OW[place] [facility] [place] [address] [place] [address] * (ABNORMAL) Basic Metabolic Panel (10/19/2023 12:32 PM COFFEE WEIGHER) Potassium, P 4.0 3.6 - 5.2 mmol/L 10/19/2023 5:31 PM COFFEE WEIGHER OWAT Sodium, P 141 135 - 145 mmol/L 10/19/2023 5:31 PM COFFEE WEIGHER OWAT Chloride, P 102 98 - 107 mmol/L 10/19/2023 5:31 PM COFFEE WEIGHER OWAT Bicarbonate, P 28 22 - 29 mmol/L 10/19/2023 5:31 PM COFFEE WEIGHER OWAT Anion Gap, P 11 7 - 15 10/19/2023 5:31 PM COFFEE WEIGHER OWAT BUN (Blood Urea Nitrogen), P 20 6 - 21 mg/dL 10/19/2023 5:31 PM COFFEE WEIGHER OWAT Creatinine 0.80 0.59 - 1.04 mg/dL 10/19/2023 5:31 PM COFFEE WEIGHER OWAT Estimated GFR (eGFR) 85 >=60 mL/min/BSA 10/19/2023 5:31 PM COFFEE WEIGHER OWAT Comment: Estimated GFR calculated using the 2020 CKD_EPI creatinine equation. Calcium, Total, P 9.9 8.6 - 10.0 mg/dL 10/19/2023 5:31 PM COFFEE WEIGHER OWAT Glucose, P 323(H) 70 - 140 mg/dL 10/19/2023 5:31 PM COFFEE WEIGHER OWAT Blood (Blood, Venous) 10/19/2023 12:32 PM COFFEE WEIGHER 10/19/2023 5:31 PM COFFEE WEIGHER Néstor Spears M.D. LAB BLOOD ADD-ON [facility] [address] [place] [address], [place] [facility] [address] [place] [address] * (ABNORMAL) Albumin, Random, Urine (07/25/2023 10:59 AM CDT) Microalbumin 2557.0 mg/L 07/25/2023 2:04 PM CDT OWAT Creatinine 172 mg/dL 07/25/2023 11:48 AM CDT OWAT Albumin/Creatinin e Ratio 1487(H) <25 mg/g 07/25/2023 2:04 PM CDT OWAT Urine (Urine, Midstream) 07/25/2023 10:59 AM CDT 07/25/2023 10:59 AM CDT Néstor Spears M.D. LAB URINE ORDERABLES [facility] [address] [place] [address], [facility] OWAT [facility] [place] [address] [place] [address] * (ABNORMAL) Lipid Panel (08/10/2022 8:17 AM [...] CDT Néstor Spears M.D. LAB BLOOD ADD-ON [facility] [address] [place] [address], [place] [facility] [place] [address] [place] [address] from Last 3 Months or Most Recently Relevant to Health Maintenance Care Teams Paralegal Assistant Relationship Specialty Start Date End Date Néstor Spears M.D. [address] [place] [phone] PCP - General Family Medicine 07/23/22
--- OUTSIDE RECORDS SUMMARY | 2024-03-16 19:05 | XMS_ITS | Encounter Summary ---
Author Organization [facility] Address [address] [place] [address] Care Team Providers Care Policy Value Calculator Name Role Phone Néstor Spears M.D. Primary Care Provider [phone] Reason for Referral * Outpatient (Routine) - Closed Specialty Diagnoses / Procedures Referred By Parth kennedy Referred To Contact Diagnoses Screening Mammogram Breast Cancer Procedures BI Breast Screening Bilateral with Tomosynthesis Néstor Spears M.D. [address] [place] [address] [facility] Region Referral ID Status Reason Start Date Expiration Date Visits Re quested Visits Authorized [id number] Closed 08/04/2023 08/03/2024 1 1 CIATE PROFESSOR COMPUTER SCIENCE Reason for Visit * Outpatient (Routine) - Closed Specialty Diagnoses / Procedures Referred By Parth kennedy Referred To Contact Diagnoses Screening Mammogram Breast Cancer Procedures BI Breast Screening Bilateral with Tomosynthesis Néstor Spears M.D. [address] [place] [address] [facility] Region Referral ID Status Reason Start Date Expiration Date Visits Re quested Visits Authorized [id number] Closed 08/04/2023 08/03/2024 1 1 Encounter Details Date Type Department Care Team (Latest Contact Info) Description 12/07/2023 9:09 AM ASSOCIATE PROFESSOR COMPUTER SCIENCE - 12/07/2023 11:59 PM ASSOCIATE PROFESSOR COMPUTER SCIENCE Hospital Encounter Department of Radiology in [place], [place] [address] COUNT INCLUDES THE [facility] [address] Néstor Spears M.D. [address] [place] [address] Screening Mammogram Breast Cancer Discharge Disposition: Home or Self Care Social History Tobacco Use Types Packs/Day Years [...] 08/06/2022 How often do you attend chur ch or methodist services? More than 4 times per year 08/06/2022 Do you belong to any clubs o r organizations such as hindu groups, unions, fraternal or athletic groups, or [...] PHQ-2 Answer Date Recorded PHQ-2 Score 0 10/22/2022 [facility] - Occupational Stress [...] your living situation today? [facility] 08/25/2023 Education Answer Date Recorded What is the highest level of school you have completed or the highest degree you have received? 12th grade 03/04/2020 Sex and Gender Information Value Date Recorded Sex Assigned at Female 06/30/2022 1:16 PM CDT Gender Identity Female 06/30/2022 1:16 PM CDT Sexual Orientation Not on file documented as of this encounter Medications at Time of Discharge Medication Sig Dispensed Refills Start Date End Date acetaminophen (TYLENOL) 500 mg tablet Take 1-2 tablets (500-1,000 mg total) by mouth every 6 (six) hours as needed for pain. 90 tablet 1 10/22/2022 albuterol (ProAir HFA) 90 mcg/actuation inhaler Inhale 2 puffs every 4 (four) hours as needed for wheezing or shortness of breath. 25.5 g 3 10/06/2023 albuterol 2.5 mg /3 mL nebulizer solution Inhale 3 mL (2.5 mg total) by nebulization every 4 (four) hours as needed for wheezing. 75 mL 3 06/14/2023 amLODIPine (NORVASC) 10 mg tablet Take 10 mg by mouth daily. 04/27/[address] tablet Take 1 tablet by mouth daily. 04/27/2022 atenoloL (TENORMIN) 100 mg tablet Take 1 tablet (100 mg total) by mouth daily. 90 tablet 3 06/14/2023 atorvastatin (LIPITOR) 10 mg tablet take one tablet by mouth daily 90 tablet 3 10/21/2023 chlorthalidone (HYGROTON) 50 mg tablet Take 1 tablet (50 mg total) by mouth daily. 90 tablet 3 07/06/2023 flash glucose scanning reader (FreeStyle Tarsha 2 [place]) misc 1 each (1 Device total) as directed. Diagnosis E11.9 1 each 07/25/2023 flash glucose sensor (FreeStyle Tarsha 2 Sensor) kit 1 each (1 kit total) every 14 (fourteen) days. Diagnosis E11.9 2 each 11 11/22/2023 11/21/2024 ibuprofen (IBU) 600 mg tablet Take 1 tablet (600 mg total) by mouth every 6 (six) hours as needed for pain. 90 tablet 1 10/22/2022 [employer] Essence device FOR HOME USE 11/09/2022 ipratropium (ATROVENT) 21 mcg (0.03 %) nasal spray Administer 1-2 sprays into each nostril as needed for rhinitis. 90 mL 3 09/09/2023 liraglutide (Victoza 3-Alex) 0.6 mg/0.1 mL (18 mg/3 mL) injection Inject 0.6 mg under the skin daily. 9 mL 11/17/2023 losartan (COZAAR) 100 mg tablet Take 1 tablet (100 mg total) by mouth daily. 90 tablet 3 11/29/2022 naloxone (NARCAN) 4 mg/actuation nasal spray as needed. 06/04/2022 nebulizer accessories kit Use as needed with your prescribed nebulizer medicine 05/24/2022 needle, disp, 25 gauge 25 gauge x 1 1/2 needle Use as instructed 100 each 11 12/09/2023 spironolactone (ALDACTONE) 50 mg tablet Take 1 tablet (50 mg total) by mouth daily. 90 tablet 3 10/06/2023 tiotropium (SPIRIVA RESPIMAT) 2.5 mcg/actuation inhaler Inhale 2 puffs daily. 4 g 11 09/09/2023 UNABLE TO FIND Oxygen for home use. Liters per minute: 1 per nasal cannula. Frequency of use: Continuous with portability.;. Length of need: 99 Months. Patient needs 3 L/min nasal cannula oxygen when sleeping. 12/12/2022 glipiZIDE (GLUCOTROL XL) 10 mg 24 hr tablet Take 1 tablet (10 mg total) by mouth daily with breakfast. E11.9 90 tablet 3 07/25/2023 02/16/2024 semaglutide (Ozempic) 0.25 mg or 0.5 mg (2 mg/3 mL) injection Inject 0.25 mg under the skin every 7 (seven) days. 3 mL 1 10/27/2023 02/16/2024 sitaGLIPtin phosphate (JANUVIA) 100 mg tablet Take 1 tablet (100 mg total) by mouth daily. 90 tablet 3 09/02/2023 02/16/2024 documented as of this encounter Plan of Treatment Upcoming Encounters Date Type Department Care Team (Late st Contact Info) Description 04/16/2024 2:45 PM CDT Office Visit Department of Family Medicine in [place], [place] [address] [address] Néstor Spears M.D. [address] [place] [address] [place] [address] Mallika Evangelista Pharm.D., BCACP, R.Ph. [address] [place] [address] documented as of this encounter Procedures Procedure Name Priority Date/Time Associated Diagnosis Comments BI BREAST SCREENING BILATERAL WITH TOMOSYNTHESIS RAD - Routine (most inpatients and all outpatients) 12/07/2023 9:29 AM ASSOCIATE PROFESSOR COMPUTER SCIENCE Screening Mammogram Breast Cancer documented in this encounter Results * (ABNORMAL) BI Breast Screening Bilateral with Tomosynthesis (12/07/2023 9:29 AM ASSOCIATE PROFESSOR COMPUTER SCIENCE) Anatomical Region Laterality Modality Breast, Breast Imaging RST L OS, Breast Imaging ARZ LOS, Breast Imaging FLA LOS Bilateral Mammography Impressions 12/07/2023 9:47 AM ASSOCIATE PROFESSOR COMPUTER SCIENCE Incomplete. ??Need additional imaging evaluation. RECOMMENDATION: ??Additional Imaging ASSESSMENT: ??BI-RADS: 0 - Incomplete: Needs Additional Imaging Evaluation. Narrative 12/07/2023 9:47 AM ASSOCIATE PROFESSOR COMPUTER SCIENCE REVISED REPORT: EXAM: ??BI BREAST SCREENING BILATERAL WITH TOMOSYNTHESIS Current study was evaluated with a Computer Aided Detection (CAD) system. INDICATION: ??Screening mammogram. COMPARISON: ??Prior exam(s) were available and reviewed for comparison. DENSITY: ??c. The breast(s) are heterogeneously dense, which may obscure small masses. FINDINGS: ??Possible focal asymmetry in the lateral left breast slightly upper quadrant posterior depth. No suspicious finding in the right breast. Procedure Note Drew Gunter M.D. - 12/07/2023 REVISED REPORT: EXAM: BI BREAST SCREENING BILATERAL WITH TOMOSYNTHESIS Current study was evaluated with a Computer Aided Detection (CAD) system. INDICATION: Screening mammogram. COMPARISON: Prior exam(s) were available and reviewed for comparison. DENSITY: c. The breast(s) are heterogeneously dense, which may obscuresmall masses. FINDINGS: Possible focal asymmetry in the lateral left breast slightlyupper quadrant posterior depth. No suspicious finding in the rightbreast. IMPRESSION: Incomplete. Need additional imaging evaluation. RECOMMENDATION: Additional Imaging ASSESSMENT: BI-RADS: 0 - Incomplete: Needs Additional ImagingEvaluation. Néstor Spears M.D. IMG BI PROCEDURES documented in this encounter Visit Diagnoses Diagnosis Screening Mammogram Breast Cancer documented in this encounter Care Teams Policy Value Calculator Relationship Specialty Start Date End Date Néstor Spears M.D. [address] [place] [phone] PCP - General Family Medicine 07/23/22 documented as of this encounter
--- OUTSIDE RECORDS SUMMARY | 2024-03-16 19:05 | XMS_ITS | Encounter Summary ---
Author Organization [facility] Address [address] [place] [address] Care Team Providers Care Paint Coating Machine Operator Name Role Phone Néstor Spears M.D. Primary Care Provider Reason for Visit * Reason Onset Date Comments Form Review 01/11/2024 [facility] ([facility]/POC [id number] - 01/17/24-03/16/24 Encounter Details Date Type Department Care Team (Latest Contact Info) Description 01/11/2024 Clinical Communication Department of Family Medicine, [facility], in [place], [place] [address] [place] [address] Néstor Spears M.D. [address] [place] [address] Form Review ([facility] ([facility]/POC [id number] - 01/17/24-03/16/24) Social History Tobacco Use Types Packs/Day Years [...] How often do you attend chur or anglican services? More than 4 times per year 08/06/2022 Do you belong to any clubs o r organizations such as faith groups, unions, fraternal or athletic groups, or [...] Answer Date Recorded PHQ-2 Score 0 10/22/2022 [facility] - [...] your living situation today? I have a [facility] place to live 08/25/2023 Education Answer Date Recorded What is the highest level of school you have completed or the highest degree you have received? 12th grade 03/04/2020 Sex and Gender Information Value Date Recorded Sex Assigned at Female 06/30/2022 1:16 PM CDT Gender Identity Female 06/30/2022 1:16 PM CDT Sexual Orientation Not on file documented as of this encounter Miscellaneous Notes * Telephone Encounter - Adele Dos Santos - 01/12/2024 7:39 PM CDT Completed form(s) faxed back to [facility], and sent to [facility] for scanning. * Telephone Encounter - Adele Dos Santos - 01/11/2024 3:24 PM CDT Form was emailed to Néstor Spears MD, for electronic review/signature. POLICE OFFICER: [facility] PHONE NUMBER: [phone] INFO REQUESTED: Order [id number] (C/POC 01/17/24-03/16/24) INSTRUCTIONS: Fax information to [phone] documented in this encounter Plan of Treatment Upcoming Encounters Date Type Department Care Team (Late st Contact Info) Description 04/16/2024 2:45 PM CDT Office Visit Department of Family Medicine in [place], [place] [address] [place] [address] Néstor Spears M.D. [address] [place] [address] Mallika Evangelista, PharmStaciaD., BCACP, R.Ph. [address] [place] [address] documented as of this encounter Visit Diagnoses Not on filedocumented in this encounter Care Teams Paint Coating Machine Operator Relationship Specialty Start Date End Date Néstor Spears M.D. [address] [place] [address] PCP - General Family Medicine 07/23/22 documented as of this encounter
--- OUTSIDE RECORDS SUMMARY | 2024-03-16 19:05 | XMS_ITS | Encounter Summary ---
Author Organization [facility] Address [address] [place] [address] Care Team Providers Care Laboratory Administrative Director Name Role Phone Néstor Spears M.D. Primary Care Provider Reason for Visit * Reason Onset Date Comments PandaDoc Form 03/08/2024 [facility] - [id number] Encounter Details Date Type Department Care Team (Latest Contact Info) Description 03/08/2024 Clinical Communication Department of Family Medicine, [facility], in [place], [place] [address] [place] [address] Néstor Spears M.D. [address] [place] [address] PandaDoc Form ([facility] - [id number]) Social History Tobacco Use Types Packs/Day Years [...] often do you attend chur ch or jainism services? More than 4 times per year 08/06/2022 Do you belong to any clubs o r organizations such as voodoo groups, unions, fraternal or athletic groups, or [...] Answer Date Recorded PHQ-2 Score 0 02/16/2024 [facility] [place] [facility] - [...] money to buy more. Never true 08/25/20 Within the past 12 months, t he [...] your living situation today? I have a [facility] place to live 08/25/2023 Education Answer Date [...] encounter Miscellaneous Notes * Telephone Encounter - Kady Thomson - 03/09/2024 9:35 AM CDT Faxed back. Sent to be scanned into patient chart. * Telephone Encounter - Kady Thomson - 03/08/2024 1:23 PM CDT Form was emailed to Dr Spears for electronic review/signature. INDUSTRIAL TRAINER: [facility] PHONE NUMBER: [phone] INFO REQUESTED: [id number] INSTRUCTIONS: Fax to: [phone] documented in this encounter Plan of Treatment Upcoming Encounters Date Type Department Care Team (Late st Contact Info) Description 04/16/2024 2:45 PM CDT Office Visit Department of Family Medicine in [place], [place] [address] [place] [phone] Néstor Spears M.D. [address] [place] [address] Mallika Evangelista, PharmStaciaD., BCACP, R.Ph. [address] [place] [address] documented as of this encounter Visit Diagnoses Not on filedocumented in this encounter Care Teams Laboratory Administrative Director Relationship Specialty Start Date End Date Néstor Spears M.D. [address] [place] [address] PCP - General Family Medicine 07/23/22 documented as of this encounter
--- OUTSIDE RECORDS SUMMARY | 2024-03-16 19:05 | XMS_ITS | Continuity of Care Document ---
Author Organization [facility] Office Address [address] [place] [address] [address] [place] [address] Assessment No assessment recorded. Plan of Treatment Reminders Order Date Submit Date Provider Last Modified By Organization Details Last Modified Time Details Appointments [facility] 15 2023 10:00A M JAMAL HINOJOSA DPM Not available Not available Not available Lab None recorded. Referral None recorded. Procedures None recorded. Surgeries None recorded. Imaging None recorded. Medication Orders None recorded. Patient TargetsNo targets recorded. Patient InstructionsNo instructions recorded. Reason for Referral None Reported. Problems Name Status Onset Date Resolution Date Notes Provider Name and Address Organization Details Recorded Time Diabetic care Active 03/02/[address] Vega 02/27/24 Jahaira gilliam [facility] 03/02/2024 11:40:10 Problem Notes None recorded. Medical Equipment None Reported. Allergies Allergen ID Allergen Name Allergen Category Reaction Reaction Severity Criticality Documentation Date Start Date Code Code System Note Provider Name and Address Organization Details Recorded Time Benadryl medicatio n Not available Not available Not available 03/02/2024 68630 7 RxNorm Jahaira gilliam [facility] 4 11:39:00 76049 lisinopri l medicatio n Not available Not available Not available 03/02/2024 83715 RxNorm Jahaira gilliam [facility] 11:39:27 Medications Name Sig Start Date Stop Date Status Note LastModified by Organization Details LastModified Time albuterol sulfate 2.5 mg/3 mL (0.083 %) solution for nebulization INHALE 3 ML (2.5 MG TOTAL) BY NEBULIZATIO N EVERY 4 (FOUR) HOURS NEEDED FOR WHEEZING. active Not Available Not Available No t Available atorvastatin 10 mg tablet TAKE ONE TABLET BY MOUTH DAILY active Not Available Not Available Not Available atenolol 100 mg tablet TAKE 1 TABLET (100 MG TOTAL) BY MOUTH DAILY. active Not Available Not Available No t Available glipizide ER 10 mg tablet, extended release 24 hr TAKE 2 TABLETS BY MOUTH EVERY DAY WITH BREAKFAST active Not Available Not Available No t Available glipizide ER 5 mg tablet, extended release 24 hr TAKE 1 TABLET BY MOUTH EVERY DAY active Not Available Not Available No t Available chlorthalido ne 50 mg tablet TAKE 1 TABLET BY MOUTH EVERY DAY active Not Available Not Available No t Available spironolacto ne 25 mg tablet TAKE 1 TABLET (25 MG TOTAL) BY MOUTH DAILY. active Not Available Not Available No t Available hydrochlorot hiazide 25 mg tablet TAKE 1 TABLET (25 MG TOTAL) BY MOUTH DAILY. active Not Available Not Available No t Available ipratropium bromide 21 mcg (0.03 %) nasal spray ADMINISTER 1-2 SPRAYS INTO EACH NOSTRIL NEEDED FOR RHINITIS. active Not Available Not Available No t Available spironolacto ne 50 mg tablet TAKE 1 TABLET (50 MG TOTAL) BY MOUTH DAILY. active Not Available Not Available No t Available amoxicillin 875 mg-potassium clavulanate 125 mg tablet TAKE 1 TABLET BY MOUTH TWO TIMES A DAY active Not Available Not Available Not Available Ventolin HFA 90 mcg/actuatio n aerosol inhaler INHALE 2 PUFFS EVERY 4 (FOUR) HOURS NEEDED FOR WHEEZING OR SHORTNESS OF BREATH. active Not Available Not Available N ot Available BD Regular [place] 25 gauge x 1 1/2 USE INSTRUCTED active Not Available Not Available N ot Available UltiCare Pen Needle 31 gauge x 5/16 USE DIRECTED ONCE DAILY active Not Available Not Available N ot Available Victoza 2-Alex 0.6 mg/0.1 mL (18 mg/3 mL) subcutaneous pen injector INJECT 0.6 MG UNDER THE SKIN DAILY. active Not Available Not Available No t Available Spiriva Respimat 2.5 mcg/actuatio n solution for inhalation INHALE 2 PUFFS DAILY. active Not Available Not Available No t Available FreeStyle Tarsha 2 Sensor kit 1 EACH (1 KIT TOTAL) EVERY 14 (FOURTEEN) DAYS. DIAGNOSIS E11.9 active Not Available Not Available No t Available FreeStyle Tarsha 2 [place] USE TO TEST BLOOD SUGAR active Not Available Not Available Not Available Vitals Date Recorded Body height Body mass index (BMI) Body weight Provider Name and Address Organization Details Last Updated DateTime 03/02/2024 149.86 cm 40.4 kg/m2 57723.47 g Jahaira Tom [place] [facility] 03/02/2024 11:35:32 Social History None recorded. Functional Status None recorded. Mental Status None recorded. Family History Nothing Reported. Medical History No medical history recorded. Gynecological HistoryNo gynecological history recorded. Obstetrics History GPAL:G 0 P 0 0 0 0 Past Encounters Encounter ID Performer Location Encounter Start Date Encounter Closed Date Diagnosis/Indication Diagnosis SNOMED-CT Code [id number] JAMAL HINOJOSA DPM [place] [facility] [address] [place] [phone] 03/02/2024 11:34:12 03/05/2024 10:53:17 Onychomycosis [id number] Ingrowing nail 109610264 Pain in toe 949610974 Pain of to e of left foot [id number] 8 Type 2 yessenia betes mellitus 54885105 Health Concerns Section Related Observation LastModified by Organization Detai ls LastModified Time None Recorded Concern Status LastModified by Organization Details LastModified Time None Recorded Payers Encounter Date Sequence Insurance Name Policy Number Policy Harrison Covered Member ID Harrison Member ID Guarantor Name 03/02/[address] [facility] [id number] Lidia [place] Notes Date Note Type Note Provider Name and Address Organization Details Recorded Time 03/02/2024 text/html HPI Notes: The patient was seen today with a chief complaint of painful thickened and elongated toenails for which the patient has been unable to care on their own. Notes the thickness and ingrown corners that cause pain with pressure and shoegear use. At this time, there are no other pedal complaints. Is a known DM. JAMAL HINOJOSA DPM [address] [place], [address], [facility] 03/02/2024 13:19:23 OBGyn Episode No OBEpisode recorded.
--- OUTSIDE RECORDS SUMMARY | 2024-03-16 19:05 | XMS_ITS | Encounter Summary ---
Author Organization [facility] Address [address] [place] [address] Care Team Providers Care Salesperson Sheet Music Name Role Phone Néstor Spears M.D. Primary Care Provider Reason for Referral * Outpatient (Routine) - Authorized Specialty Diagnoses / Procedures Referred By Contdylon t Referred To Contact Family Medicine Néstor Spears M.D. [address] [place] [address] [facility] Region Referral ID Status Reason Start Date Expiration Date V isits Requested Visits Authorized [id number] Authorized 03/15/2024 09/14/2025 1 1 Reason for Visit * Reason Onset Date Comments Quality 03/13/2024 D5 Encounter Details Date Type Department Care Team (Late st Contact Info) Description 03/13/2024 Clinical Communication Department of Family Medicine, [facility], in [place], [place] [address] [place] [address] Nehal Blevins, RStaciaNStacia Quality (D5) Social History Tobacco Use Types Packs/Day Years [...] week 08/06/2022 How often do you attend [facility] or rastafarian services? More than 4 times per year 08/06/2022 Do you belong to any clubs o r organizations such as mormonism groups, unions, fraternal or athletic groups, or [...] Answer Date Recorded PHQ-2 Score 0 02/16/2024 [facility] Occupat ional Health - Occupational Stress [...] your living situation today? I have a [facility] place to live 08/25/2023 Education Answer Date Recorded What is the highest level of school you have completed or the highest degree you have received? 12th grade 03/04/2020 Sex and Gender Information Value Date Recorded Sex Assigned at Female 06/30/2022 1:16 PM CDT Gender Identity Female 06/30/2022 1:16 PM CDT Sexual Orientation Not on file documented as of this encounter Plan of Treatment Upcoming Encounters Date Type Department Care Team (Late st Contact Info) Description 04/16/2024 2:45 PM CDT Office Visit Department of Family Medicine in [place], [place] [address] [place] [address] Néstor Spears M.D. [address] [place] [phone] Mallika Evangelista, PharmStaciaD., BCACP, R.Ph. [address] [phone] Scheduled Orders Name Type Priority Associated Diagnoses Orde r Schedule Hemoglobin A1c Lab Routine Diabetes Mellitus Type 2 (HCC) Expected: 05/14/2024, Expires: 06/13/2025 Scheduled Referrals Name Type Priority Associated Diagnoses Orde r Schedule Family Medicine office visit (clinic) Outpatient Referral Routine Expected: 05/14/2024, Expires: 06/13/2025 documented as of this encounter Visit Diagnoses Diagnosis Diabetes Mellitus Type 2 (HCC)- Primary documented in this encounter Care Teams Salesperson Sheet Music Relationship Specialty Start Date End Date Néstor Spears M.D. [address] [place] [address] [place] [phone] PCP - General Family Medicine 07/23/22 documented as of this encounter
--- OUTSIDE RECORDS SUMMARY | 2024-03-16 19:05 | XMS_ITS | Encounter Summary ---
Author Organization [facility] Address [address] [place] [address] Care Team Providers Care Supervisor Chassis Assembly Name Role Phone Néstor Spears M.D. Primary Care Provider [phone] Reason for Referral * Outpatient (Routine) - Authorized Specialty Diagnoses / Procedures Referred By Parth kennedy Referred To Contact Ophthalmology Diagnoses Diabetes Mellitus Type 2 (HCC) Néstor Spears M.D. [address] [place] [address] [facility] Region Referral ID Status Reason Start Date Expiration Date Visits Requested Visits Authorized [id number] Authorized Specialty Services Required 02/16/2024 08/17/2025 1 1 Scheduling Instructions Do not schedule prior to due date to ensure insurance coverage Dilated Eye Exam Never done * Outpatient (Routine) - Authorized Specialty Diagnoses / Procedures Referred By Parth kennedy Referred To Contact Podiatry Diagnoses Diabetes Mellitus Type 2 (HCC) Néstor Spears M.D. [address] [place] [address] Referral ID Status Reason Start Date Expiration Date V isits Requested Visits Authorized [id number] Authorized 02/16/2024 08/17/2025 1 1 * Outpatient (Routine) - Authorized Specialty Diagnoses / Procedures Referred By Parth kennedy Referred To Contact Pharmacy Diagnoses Diabetes Mellitus Type 2 (HCC) Néstor Spears M.D. [address] [place] [address] [facility] Referral ID Status Reason Start Date Expiration Date V isits Requested Visits Authorized [id number] Authorized 02/16/2024 08/17/2025 1 1 Reason for Visit * Reason Comments Follow-up Follow up * Outpatient (Routine) - Closed Specialty Diagnoses / Procedures Referred By Parth kennedy Referred To Contact Family Medicine Néstor Spears M.D. [address] [place] [address] [facility] Referral ID Status Reason Start Date Expiration Date Visits Re quested Visits Authorized [id number] Closed 10/27/2023 10/26/2026 1 1 Encounter Details Date Type Department Care Team (Late st Contact Info) Description 02/16/2024 11:00 AM CDT Office Visit Department of Family Medicine, [facility], in [place], [place] [address] [place] [address] Néstor Spears M.D. [address] [place] [phone] Diabetes Mellitus Type 2 (HCC) (Primary Dx); Chronic Obstructive Pulmonary Disease Without Exacerbation (HCC); Chronic Respiratory Failure With Hypoxia (HCC); Morbid Obesity Body Mass Index 40.0-44.9 Adult (HCC); Elevated Aldosterone Level (HCC); Hypertension And Chronic Kidney Disease Stage 3; Moderate Or Severe Use Disorder (Dependence) Alcohol Remission (HCC); Screening Cancer Colon Social History Tobacco Use Types Packs/Day Years [...] week 08/06/2022 How often do you attend [facility] or anglican services? More than 4 times per year 08/06/2022 Do you belong to any clubs o r organizations such as restoration groups, unions, fraternal or athletic groups, or [...] Answer Date Recorded PHQ-2 Score 0 02/16/2024 [facility] Occup[facility] ional Health - Occupational [...] Answer Date Recorded Employment status Permanently disabled 3 Housing Stability Answer Date Recorded What is your living situation today? I have a [facility] place to live 08/25/2023 Education Answer Date Recorded What is the highest level of school you have completed or the highest degree you have received? 12th grade 03/04/2020 Sex and Gender Information Value Date Recorded Sex Assigned at Female 06/30/2022 1:16 PM CDT Gender Identity Female 06/30/2022 1:16 PM CDT Sexual Orientation Not on file documented as of this encounter Last Filed Vital Signs Vital Sign Reading Time Taken Comments Blood Pressure 113/72 02/16/2024 10:53 AM CDT Pulse 86 02/16/2024 10:53 AM CDT Temperature 35.8 ??C (96.4 ??F) 02/16/2024 10:53 AM C DT Respiratory Rate 16 02/16/2024 10:53 AM CDT Oxygen Saturation - - Inhaled Oxygen Concentration - - Weight 90.9 kg (200 lb 8.1 oz) 02/16/2024 10:53 AM CDT Height 153.3 cm (5' 0.35) 02/16/2024 10:53 AM C DT Body Mass Index 38.7 02/16/2024 10:53 AM CDT documented in this encounter Progress Notes * Néstor Spears M.D. - 02/16/2024 11:00 AM CDT Progress Note This 57 y.o. female with history of diabetes mellitus 2, asthma, smoking, TIA/CVA, methamphetamine dependence and alcohol dependence in remission, BMI 41, hypertension, severe obstructive sleep apneawho presented today to the clinic accompanied by her medical office assistant instructor to follow-up diabetes. Requested referral to Podiatry. Diabetes Visit type: follow-up Diabetes type: type 2 MedicAlert ID: no A1C target: <7 Associated symptoms: none Hypoglycemia symptoms: none Hypoglycemia complications: none Diabetic complications: none CAD risks: diabetes mellitus, dyslipidemia, hypertension, obesity and sedentary lifestyle Treatment compliance: all of the time Blood glucose trend: no change Blood pressure status: controlled Weight trend: stable Current diet: generally unhealthy Meal planning: none Dietitian visit: no Exercise: rarely JOSE FRANCISCO-I / ARB: is being taken Statins: is being taken Eye exam current: no Foot exam current: yes Sees embossing machine tender: no Pneumococcal vaccine: yes Allergies Allergen Reactions Lisinopril Anaphylaxis and Rash Benadryl Allergy Decongestant Edema (Reselect Reaction) Lisinopril-Hydrochlorothiazide Edema (Reselect Reaction) Current Outpatient Medications: acetaminophen (TYLENOL) 500 mg tablet, Take 1-2 tablets (500-1,000 mg total) by mouth every 6 (six)hours as needed for pain., Disp: 90 tablet, Rfl: 1 albuterol (ProAir HFA) 90 mcg/actuation inhaler, Inhale 2 puffs every 4 (four) hours as needed for wheezing or shortness of breath., Disp: 25.5 g, Rfl: 3 albuterol 2.5 mg /3 mL nebulizer solution, Inhale 3 mL (2.5 mg total) by nebulization every 4 (four) hours as needed for wheezing., Disp: 75 mL, Rfl: 3 amLODIPine (NORVASC) 10 mg tablet, Take 10 mg by mouth daily., Disp: , Rfl: aspirin [address] tablet, Take 1 tablet by mouth daily., Disp: , Rfl: atenoloL (TENORMIN) 100 mg tablet, Take 1 tablet (100 mg total) by mouth daily., Disp: 90 tablet, Rfl: 3 atorvastatin (LIPITOR) 10 mg tablet, take one tablet by mouth daily, Disp: 90 tablet, Rfl: 3 chlorthalidone (HYGROTON) 50 mg tablet, Take 1 tablet (50 mg total) by mouth daily., Disp: 90 tablet, Rfl: 3 flash glucose scanning reader (FreeStyle Tarsha 2 [place]) misc, 1 each (1 Device total) as directed.Diagnosis E11.9, Disp: 1 each, Rfl: 0 flash glucose sensor (FreeStyle Tarsha 2 Sensor) kit, 1 each (1 kit total) every 14 (fourteen) days.Diagnosis E11.9, Disp: 2 each, Rfl: 11 glipiZIDE (GLUCOTROL XL) 10 mg 24 hr tablet, Take 2 tablets (20 mg total) by mouth daily with breakfast. E11.9, Disp: 180 tablet, Rfl: 3 ibuprofen (IBU) 600 mg tablet, Take 1 tablet (600 mg total) by mouth every 6 (six) hours as needed for pain., Disp: 90 tablet, Rfl: 1 InnoSpire Essence device, FOR HOME USE, Disp: , Rfl: ipratropium (ATROVENT) 21 mcg (0.03 %) nasal spray, Administer 1-2 sprays into each nostril as needed for rhinitis., Disp: 90 mL, Rfl: 3 liraglutide (Victoza 3-Alex) 0.6 mg/0.1 mL (18 mg/3 mL) injection, Inject 0.6 mg under the skin daily., Disp: 9 mL, Rfl: 0 losartan (COZAAR) 100 mg tablet, Take 1 tablet (100 mg total) by mouth daily., Disp: 90 tablet, Rfl: 3 naloxone (NARCAN) 4 mg/actuation nasal spray, as needed., Disp: , Rfl: nebulizer accessories kit, Use as needed with your prescribed nebulizer medicine, Disp: , Rfl: needle, disp, 25 gauge 25 gauge x 1 1/2 needle, Use as instructed, Disp: 100 each, Rfl: 11 pen needle, diabetic (BD Ultra-Fine Short Pen Needle) 31 gauge x 5/16 needle, Use as directed oncedaily, Disp: 100 each, Rfl: 3 spironolactone (ALDACTONE) 50 mg tablet, Take 1 tablet (50 mg total) by mouth daily., Disp: 90 tablet, Rfl: 3 tiotropium (SPIRIVA RESPIMAT) 2.5 mcg/actuation inhaler, Inhale 2 puffs daily., Disp: 4 g, Rfl: 11 UNABLE TO FIND, Oxygen for home use. Liters per minute: 1 per nasal cannula. Frequency of use: Continuous with portability.;. Length of need: 99 Months. 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 Morbid Obesity Body Mass Index 40.0-44.9 Adult ([facility]) 12/31/2022 Obstructive Sleep Apnea Adult 08/26/2023 Other Stimulant Mild Use Disorder (Abuse) In Remission ([facility]) 04/27/2022 Smoking Tobacco Use Personal History 12/31/2022 Stroke ([facility]) Social History Tobacco Use Smoking status: Former Current packs/day: 0.25 Average packs/day: 0.3 packs/day for 43.8 years (10.9 ttl pk-yrs) Types: Cigarettes Start date: 05/05/1980 Passive exposure: Never Smokeless tobacco: Never Vaping Use Vaping status: never used Substance Use Topics Alcohol use: Never Drug use: Never All other systems reviewed and are negative. Vitals: 02/16/24 1053 BP: 113/72 BP Location: Right arm Patient Position: Sitting Cuff Size: Large Pulse: 86 Resp: 16 Temp: (!) 35.8 ??C TempSrc: Temporal Weight: 90.9 kg Height: 153.3 cm Constitutional Appearance: She is well-developed. HENT Head: Normocephalic and atraumatic. Right Ear: External ear normal. Left Ear: External ear normal. Nose: Nose normal. Eyes Conjunctiva/sclera: Conjunctivae normal. Pupils: Pupils are equal, round, and reactive to light. Cardiovascular Rate and Rhythm: Normal rate and regular rhythm. Heart sounds: Normal heart sounds. Pulmonary Effort: Pulmonary effort is normal. No respiratory distress. Breath sounds: Normal breath sounds. Abdominal General: Bowel sounds are normal. There is no distension. Palpations: Abdomen is soft. There is no mass. Tenderness: There is no abdominal tenderness. There is no guarding. Musculoskeletal General: Normal range of motion. Cervical back: Normal range of motion and neck supple. Skin General: Skin is warm and dry. Neurological Mental Status: She is alert and oriented to person, place, and time. Deep Tendon Reflexes: Reflexes are normal and symmetric. Psychiatric Behavior: Behavior normal. Lidia Shi was seen today for follow-up. Diagnoses and all orders for this visit: Diabetes Mellitus Type 2 ([facility]) - Pharmacy - Medication therapy management consult (clinic); Future - External referral ancillary (non-[place]) - Ophthalmology - General consult (clinic); Future Lab Results Component Value Date HGBA1C 10.5 (H) 02/13/2024 HGBA1C 10.0 (H) 09/01/2023 HGBA1C 9.1 (H) 06/14/2023 Lab Results Component Value Date GLUCOSE 323 (H) 10/19/2023 ALBCREARATIO 1487 (H) 07/25/2023 LDLCALC 40 08/10/2022 CREATININE 0.80 10/19/2023 We discussed that her diabetes continues to be uncontrolled. She is currently on Victoza and glipizide XL 10 mg daily. She was prescribed Januvia but insurance did not cover. Will increase the dose of glipizide XL to 20 mg daily. She noticed to have lost some weight on Victoza. Her weight went downto 90 kg today. Counseled about healthy diet and exercise. She is due for an eye exam, referral to Ophthalmology placed. Referral to Podiatry also placed. She is currently on Lipitor 10 mg daily, losartan 100 mg and baby aspirin. Referral to pharmacy for medication management placed. Chronic Obstructive Pulmonary Disease Without Exacerbation ([facility]) She is currently on Spiriva and albuterol as needed. Chronic Respiratory Failure With Hypoxia (HCC) Resolved. Morbid Obesity Body Mass Index 40.0-44.9 Adult ([facility]) Counseled about healthy diet and exercise. Lost 4 kg since October. Hypertension And Chronic Kidney Disease Stage 3 Blood pressure continues to be well controlled on Norvasc 10 mg, spironolactone 50 mg daily, chlorthalidone 50 mg daily, atenolol 100 mg daily and losartan 100 mg daily. Moderate Or Severe Use Disorder (Dependence) Alcohol Remission (HCC) In remission Screening Cancer Colon - Cologuard - Sent Out Lab; Future Other orders - Family Medicine office visit (clinic) - glipiZIDE (GLUCOTROL XL) 10 mg 24 hr tablet; Take 2 tablets (20 mg total) by mouth daily with breakfast. E11.9 documented in this encounter Plan of Treatment Upcoming Encounters Date Type Department Care Team (Late st Contact Info) Description 04/16/2024 2:45 PM CDT Office Visit Department of Family Medicine in [place], [place] [address] [place] [phone] Néstor Spears M.D. [address] [place] [phone] Mallika Evangelista, Pharm.D., BCACP, R.Ph. [address] [phone] Scheduled Orders Name Type Priority Associated Diagnoses Orde r Schedule Cologuard - Sent Out Lab Lab Routine Screening Cancer Colon Expected: 02/17/2024, Expires: 05/18/2025 Scheduled Referrals Name Type Priority Associated Diagnoses Order Schedule Pharmacy - Medication therapy management consult (clinic) Outpatient Referral Routine Diabetes Mellitus Type 2 (HCC) Expected: 02/16/2024, Expires: 05/18/2025 Ophthalmology - General consult (clinic) Outpatient Referral Routine Diabetes Mellitus Type 2 (HCC) Expected: 02/16/2024 (Approximate), Expires: 05/18/2025 documented as of this encounter Visit Diagnoses Diagnosis Diabetes Mellitus Type 2 (HCC)- Primary Chronic Obstructive Pulmonary Disease Without Exacerbation (HCC) Chronic Respiratory Failure With Hypoxia (HCC) Morbid Obesity Body Mass Index 40.0-44.9 Adult (HCC) Elevated Aldosterone Level (HCC) Hypertension And Chronic Kidney Disease Stage 3 Moderate Or Severe Use Disorder (Dependence) Alcohol Remission (HCC) Screening Cancer Colon documented in this encounter Care Teams Supervisor Chassis Assembly Relationship Specialty Start Date End Date Néstor Spears M.D. [address] [place] [phone] PCP - General Family Medicine 07/23/22 documented as of this encounter
--- OUTSIDE RECORDS SUMMARY | 2024-03-16 19:05 | XMS_ITS | Encounter Summary ---
Author Organization [facility] Address [address] [place] [address] Care Team Providers Care Merchandising Team Lead Name Role Phone Néstor Spears M.D. Primary Care Provider [phone] Reason for Visit * Reason Onset Date Comments Quality 02/07/2024 D5 Encounter Details Date Type Department Care Team (Late st Contact Info) Description 02/07/2024 Clinical Communication Department of Family Medicine, [facility], in [address] [phone] Nehal Blevins, RStaciaN. Quality (D5) Social History Tobacco Use Types [...] often do you attend chur ch or rastafarian services? More than 4 times [...] Answer Date Recorded PHQ-2 Score 0 10/22/2022 [facility] of Occupat ional Health - Occupational [...] your living situation today? I have a [facility] place to live 08/25/2023 Education Answer Date [...] encounter Miscellaneous Notes * Telephone Encounter - Nehal Blevins R.NStacia - 02/07/2024 9:58 AM CDT Primary Care Diabetes Review Completed patient diabetes review on 02/07/2024, for Lidia Monique, a 58 y.o. female, currently paneled to Néstor Spears M.D. Summary of Chart Review Recent Labs 09/01/23 0916 06/14/23 1153 08/10/22 0817 04/27/22 0930 HGBA1C 10.0 H 9.1 H -- 5.2 LDLCALC -- -- 40 46 BP Readings from Last 2 Encounters: 10/19/23 135/85 10/06/23 148/87 Social History Tobacco Use Smoking Status Former Current packs/day: 0.25 Average packs/day: 0.3 packs/day for 43.8 years (10.9 ttl pk-yrs) Types: Cigarettes Start date: 05/05/1980 Passive exposure: Never Smokeless Tobacco Never Upon today's chart review, patient is not meeting the following D5 criteria: A1C Patient does not have a visit scheduled in Primary Care within the next 3 months. Recent Updates to Diabetes Management Plan The following recommendations regarding patient's diabetes management plan have been made within the last 12 months: No changes to patient's diabetes management plan have been recommended within the last 12 months. Recommended follow-up RN will: Contact patient to: Schedule diabetes follow-up and A1c lab work. Additional Notes Additional notes: None SUBJECTIVE CHIEF COMPLAINT / REASON FOR CALL Quality (D5) Information Discussed Java Android Developer spoke with patient informed patient that they are due for A1c and diabetic appointment. Patient agreeable to schedule at this time. PLAN Disposition/Recommendation: patient transferred to the appointment desk Information/Education: patient/caller able to teach back documented in this encounter Plan of Treatment Upcoming Encounters Date Type Department Care Team (Late st Contact Info) Description 04/16/2024 2:45 PM CDT Office Visit Department of Family Medicine in [place], [place] [address] [place] [phone] Néstor Spears M.D. [address] [place] [phone] Mallika Evangelista, Pharm.D., BCACP, R.Ph. [address] [place] [phone] documented as of this encounter Visit Diagnoses Not on filedocumented in this encounter Care Teams Merchandising Team Lead Relationship Specialty Start Date End Date Néstor Spears M.D. [address] [place] [phone] PCP - General Family Medicine 07/23/22 documented as of this encounter
--- OUTSIDE RECORDS SUMMARY | 2024-03-16 19:05 | XMS_ITS | Encounter Summary ---
Author Organization [facility] Address [address] [place] [address] Care Team Providers Care Porcelain Mixer Name Role Phone Néstor Spears M.D. Primary Care Provider [phone] Reason for Visit * Reason Onset Date Comments Quality 12/27/2023 D5 Encounter Details Date Type Department Care Team (Late st Contact Info) Description 12/27/2023 Clinical Communication Department of Family Medicine, [facility], in [address] [address] Nehal Blevins, RStaciaN. Quality (D5) Social History [...] often do you attend chur ch or sabianist services? More than 4 times per year 08/06/2022 Do you belong to any clubs o r organizations such as synagogue groups, unions, fraternal or athletic groups, or [...] Answer Date Recorded PHQ-2 Score 0 02/16/2024 [facility] of Occupat ional Health - Occupational [...] your living situation today? I have a [facility] place to live 08/25/2023 Education Answer [...] Office Visit Department of Family Medicine in [place], [place] [address] [place] [phone] Néstor Spears M.D. [address] [place] [address] Mallika Evangelista, PharmStaciaD., BCACP, R.Ph. [address], [place] [address] documented as of this encounter Visit Diagnoses Not on filedocumented in this encounter Care Teams Porcelain Mixer Relationship Specialty Start Date End Date Néstor Spears M.D. [address] [place] [address] PCP - General Family Medicine 07/23/22 documented as of this encounter
--- OUTSIDE RECORDS SUMMARY | 2024-03-16 19:05 | XMS_ITS | Encounter Summary ---
Author Organization [facility] Address [address] [place] [address] Care Team Providers Care Baker Second Name Role Phone Néstor Spears M.D. Primary Care Provider [phone] Encounter Details Date Type Department Care Team (Latest Contact Info) Description 02/13/2024 10:39 AM CDT - 02/13/2024 11:59 PM CDT Hospital Encounter Department of Laboratory Medicine in [address] [phone] Néstor Spears M.D. [address] [place] [phone] Diabetes Mellitus Type 2 (HCC) Discharge Disposition: Home or Self Care Social [...] How often do you attend chur or confucianist services? More than 4 times per year 08/06/2022 Do you belong to any clubs o r organizations such as hoahaoism groups, unions, fraternal or athletic groups, or [...] Answer Date Recorded PHQ-2 Score 0 10/22/2022 [facility] of Occupat ional Health - Occupational Stress [...] your living situation today? I have a [facility] place to live 08/25/2023 Education Answer [...] flash glucose scanning reader (FreeStyle Tarsha 2 [place]) misc 1 each (1 Device total) as directed. Diagnosis E11.9 1 each 07/25/2023 flash glucose sensor (FreeStyle Tarsha 2 Sensor) kit 1 each (1 kit total) every 14 (fourteen) days. Diagnosis E11.9 2 each 11 11/22/2023 11/21/2024 ibuprofen (IBU) 600 mg tablet Take 1 tablet (600 mg total) by mouth every 6 (six) hours as needed for pain. 90 tablet 1 10/22/2022 TrackerSphere device FOR HOME USE 11/09/2022 ipratropium (ATROVENT) [...] Use as instructed 100 each 11 12/09/2023 pen needle, diabetic (BD Ultra-Fine Short Pen Needle) 31 gauge x 5/16 needle Use as directed once daily 100 each 3 12/13/2023 spironolactone (ALDACTONE) 50 mg tablet Take 1 [...] Office Visit Department of Family Medicine in [place], [place] [address] [place] [phone] Néstor Spears M.D. [address] [place] [phone] Mallika Evangelista, Pharm.D., BCACP, R.Ph. [address] [place] [phone] documented as of this encounter Procedures Procedure Name Priority Date/Time Associated Diagnosis Comments HEMOGLOBIN A1C, B Routine 02/13/2024 10: 46 AM CDT Diabetes Mellitus Type 2 (HCC) documented in this encounter Results * (ABNORMAL) Hemoglobin A1c (02/13/2024 10:46 AM [...] CDT Néstor Spears M.D. LAB BLOOD ADD-ON [facility] [address] [place] [address], [facility] in [place] [employer] [address] [place] [address] documented in this encounter Visit Diagnoses Diagnosis Diabetes Mellitus Type 2 (HCC) documented in this encounter Care Teams Baker Second Relationship Specialty Start Date End Date Néstor Spears M.D. [address] [place] [phone] PCP - General Family Medicine 07/23/22 documented as of this encounter
--- OUTSIDE RECORDS SUMMARY | 2024-03-16 19:05 | XMS_ITS | Encounter Summary ---
Author Organization [facility] Address [address] [place] [address] Care Team Providers Care Divisional Storekeeper Name Role Phone Néstor Spears M.D. Primary Care Provider Reason for Visit * Reason Comments Med Refill Encounter Details Date Type Department Care Team (Late st Contact Info) Description 11/21/2023 Refill Department of Family Medicine, [facility], in [address] [phone] Shy Lacy, P.A.-C. [address], [place] [address] Med Refill Social History Tobacco Use Types Packs/Day Years [...] any clubs o r organizations such as gnosticist groups, unions, fraternal or athletic groups, or [...] Answer Date Recorded PHQ-2 Score 0 10/22/2022 [facility] of Occupat ional [facility] - Occupational Stress Questionnaire Answer Date [...] your living situation today? I have a [facility] place to live 08/25/2023 Education Answer [...] Office Visit Department of Family Medicine in [place], [place] [address], [place] [phone] Néstor Spears M.D. [address] [place] [phone] Mallika Evangelista, Pharm.D., BCACP, R.Ph. [address], [place] [address] documented as of this encounter Visit Diagnoses Not on filedocumented in this encounter Care Teams Divisional Storekeeper Relationship Specialty Start Date End Date Néstor Spears M.D. [address] [place] [address] [place] [phone] PCP - General Family Medicine 07/23/22 documented as of this encounter
--- OUTSIDE RECORDS SUMMARY | 2024-03-16 19:05 | XMS_ITS | Encounter Summary ---
Author Organization [facility] Address [address] [place] [address] Care Team Providers Care Telegraph Repeater Installer Name Role Phone Néstor Spears M.D. Primary Care Provider [phone] Encounter Details Date Type Department Care Team (Late st Contact Info) Description 02/17/2024 Orders Only Department of Family Medicine, [facility], in [place], [place] [address] [place] [phone] Néstor Spears M.D. [address] [place] [phone] Screening Cancer Colon Social History Tobacco Use [...] any clubs o r organizations such as cheondoism groups, unions, fraternal or athletic groups, or [...] Answer Date Recorded PHQ-2 Score 0 02/16/2024 [facility] Questionnaire Answer Date [...] your living situation today? [facility] 08/25/2023 Education Answer [...] Office Visit Department of Family Medicine in [place], [place] [address] [place] [phone] Néstor Spears M.D. [address] [place] [phone] Mallika Evangelista, PharmStaciaD., BCACP, R.Ph. [address] [address] documented as of this encounter Visit Diagnoses Diagnosis Screening Cancer Colon documented in this encounter Care Teams Telegraph Repeater Installer Relationship Specialty Start Date End Date Néstor Spears M.D. [address] [place] [phone] PCP - General Family Medicine 07/23/22 documented as of this encounter
--- OUTSIDE RECORDS SUMMARY | 2024-03-16 19:05 | XMS_ITS | Encounter Summary ---
Author Organization [facility] Address [address] [place] [address] Care Team Providers Care Classification Analyst Name Role Phone Néstor Spears M.D. Primary Care Provider [phone] Reason for Visit * Reason Onset Date Comments PandaDoc Form 03/02/2024 [facility] 02/27 Encounter Details Date Type Department Care Team (Latest Contact Info) Description 03/02/2024 Clinical Communication Department of Family Medicine, [facility], in [place], [place] [address] [place] [phone] Néstor Spears M.D. [address] [place] [phone] PandaDoc Form ([facility] order 02/27 ) Social History Tobacco Use Types Packs/Day Years [...] often do you attend chur ch or uatsdin services? More than 4 times per year 08/06/2022 Do you belong to any clubs o r organizations such as taoist groups, unions, fraternal or athletic groups, or [...] Answer Date Recorded PHQ-2 Score 0 02/16/2024 [facility] of Occupat ional Health - Occupational [...] your living situation today? I have a [facility] place to live 08/25/2023 Education Answer [...] encounter Miscellaneous Notes * Telephone Encounter - Lydia Manzano - 03/02/2024 2:47 PM CDT Form faxed back to facility and sent for scanning. * Telephone Encounter - Lydia Manzano - 03/02/2024 11:23 AM CDT Form was routed to Dr. Spears for electronic review/signature. LIFT ELECTRICIAN: [facility] PHONE NUMBER: [phone] INFO REQUESTED: order 02/27 INSTRUCTIONS: Fax information to [phone] . documented in this encounter Plan of Treatment Upcoming Encounters Date Type Department Care Team (Late st Contact Info) Description 04/16/2024 2:45 PM CDT Office Visit Department of Family Medicine in [place], [place] [address] [place] [phone] Néstor Spears M.D. [address] [place] [phone] Mallika Evangelista, PharmStaciaD., BCACP, R.Ph. [address] [place] [address] documented as of this encounter Visit Diagnoses Not on filedocumented in this encounter Care Teams Classification Analyst Relationship Specialty Start Date End Date Néstor Spears M.D. [address] [place] [phone] PCP - General Family Medicine 07/23/22 documented as of this encounter
--- OUTSIDE RECORDS SUMMARY | 2024-03-16 19:05 | XMS_ITS | Encounter Summary ---
Author Organization [facility] Address [address] [place] [address] Care Team Providers Care Roustabout Crew Leader Name Role Phone Néstor Spears M.D. Primary Care Provider [phone] Reason for Referral * Outpatient (Routine) - Closed Specialty Diagnoses / Procedures Referred By Parth kennedy Referred To Contact Diagnoses Abnormal Mammogram Procedures BI Breast Diagnostic Left with TomosyntheNéstor Reddy M.D. [address] [place] [address] [facility] Referral ID Status Reason Start Date Expiration Date Visits Re quested Visits Authorized [id number] Closed 02/09/2024 02/08/2025 1 1 Reason for Visit * Outpatient (Routine) - Closed Specialty Diagnoses / Procedures Referred By Parth kennedy Referred To Contact Diagnoses Abnormal Mammogram Procedures BI Breast Diagnostic Left with TomNéstor Monroe M.D. [address] [place] [address] [facility] Region Referral ID Status Reason Start Date Expiration Date Visits Re quested Visits Authorized [id number] Closed 02/09/2024 02/08/2025 1 1 Encounter Details Date Type Department Care Team (Latest Contact Info) Description 02/27/2024 10:43 AM CDT - 02/27/2024 10:44 AM CDT Hospital Encounter Department of Radiology in [place], [place] [address] [place] [phone] Néstor Spears M.D. [address] [place] [address] [place] [phone] Abnormal Mammogram Discharge Disposition: Home or Self Care Social [...] often do you attend chur ch or scientologist services? More than 4 times per year 08/06/2022 Do you belong to any clubs o r organizations such as islam groups, unions, fraternal or athletic groups, or [...] Answer Date Recorded PHQ-2 Score 0 02/16/2024 [facility] of Occupat ional Health - Occupational [...] living situation today? [facility] 08/25/2023 Education [...] flash glucose scanning reader (FreeStyle Tarsha 2 [place]) misc 1 each (1 Device total) as directed. Diagnosis E11.9 1 each 07/25/2023 flash glucose sensor (FreeStyle Tarsha 2 Sensor) kit 1 each (1 kit total) every 14 (fourteen) days. Diagnosis E11.9 2 each 11 11/22/2023 11/21/2024 glipiZIDE (GLUCOTROL XL) 10 mg 24 hr tablet Take 2 tablets (20 mg total) by mouth daily with breakfast. E11.9 180 tablet 3 02/16/2024 ibuprofen (IBU) 600 mg tablet Take 1 tablet (600 mg total) by mouth every 6 (six) hours as needed for pain. 90 tablet 1 10/22/2022 InnoSpire Essence device FOR HOME USE 11/09/2022 ipratropium [...] L/min nasal cannula oxygen when sleeping. 12/12/2022 documented as of this encounter Plan of Treatment Upcoming Encounters Date Type Department Care Team (Late st Contact Info) Description 04/16/2024 2:45 PM CDT Office Visit Department of Family Medicine in [place], [place] [address] [place] [address] Néstor Spears M.D. [address] [place] [phone] Mallika Evangelista A, Pharm.D., BCACP, R.Ph. [address] [phone] documented as of this encounter Procedures Procedure Name Priority Date/Time Associated Diagnosis Comments BI BREAST DIAGNOSTIC LEFT WITH TOMOSYNTHESIS RAD - Routine (most inpatients and all outpatients) 02/27/2024 11:01 AM CDT Abnormal Mammogram documented in this encounter Results * BI Breast Diagnostic Left with [...] Negative. Néstor Spears M.D. IMG BI PROCEDURES documented in this encounter Visit Diagnoses Diagnosis Abnormal Mammogram documented in this encounter Care Teams Roustabout Crew Leader Relationship Specialty Start Date End Date Néstor Spears M.D. [address] [place] [phone] PCP - General Family Medicine 07/23/22 documented as of this encounter
--- OUTSIDE RECORDS SUMMARY | 2024-03-16 19:05 | XMS_ITS | Encounter Summary ---
Author Organization [facility] Address [address] [place] [address] Care Team Providers Care Towboat Pilot Name Role Phone Néstor Spears M.D. Primary Care Provider Reason for Visit * Reason Onset Date Comments Med Question 02/29/2024 Discontinued med ication- [facility] Follow-up Orders 02/29/2024 Encounter Details Date Type Department Care Team (Latest Contact Info) Description 02/29/2024 Clinical Communication Department of Family Medicine, [facility], in [place], [place] [address] [place] [address] Néstor Spears M.D. [address] [place] [phone] Med Question (Discontinued medication- [facility]); Follow-up Orders Social History Tobacco Use Types Packs/Day Years [...] How often do you attend chur or gnosticism services? More than 4 times per year [...] Answer Date Recorded PHQ-2 Score 0 02/16/2024 [facility] of Occupat ional Health - [...] your living situation today? I have a [facility] place to live 08/25/2023 Education Answer [...] encounter Miscellaneous Notes * Telephone Encounter - Terrie Sanchez, L.P.N. - 03/06/2024 1:12 PM CDT SUBJECTIVE CHIEF COMPLAINT / REASON FOR CALL Med Question (Discontinued medication- [facility]) PLAN The following information was provided: Zakiya from [facility] stated the the patient had informed her that she has not been taking Amlodipine or Losartan and that she has been taking Atenolol and Spirolactone. Pat stated she also spoke with [place] previously and they said patient has not picked up the Losartan rx since November. Called patient and reconciled Yuridia's blood pressure medications. Patient stated she is taking Amlodipine, Losartan, Atenolol, Chlorthalidone and Spironolactone as prescribed. Called Pat at [facility] she is the nurse that sets up medications and Pat stated she does not have Amlodipine or Losartan to be administering to patient. Information/Education: patient/caller able to teach back The following references were used: nursing clinical judgement documented in this encounter Plan of Treatment Upcoming Encounters Date Type Department Care Team (Late st Contact Info) Description 04/16/2024 2:45 PM CDT Office Visit Department of Family Medicine in [place], [place] [address], [place] [address] Néstor Spears M.D. [address] [place] [address] Mallika Evangelista, Pharm.D., BCACP, R.Ph. [address], [place] [address] documented as of this encounter Visit Diagnoses Not on filedocumented in this encounter Care Teams Towboat Pilot Relationship Specialty Start Date End Date Néstor Spears M.D. [address] [place] [phone] PCP - General Family Medicine 07/23/22 documented as of this encounter
--- OUTSIDE RECORDS SUMMARY | 2024-03-16 19:05 | XMS_ITS | Encounter Summary ---
Author Organization [facility] Address [address] [place] [address] Care Team Providers Care Power Plant Electrician Name Role Phone Néstor Spears M.D. Primary Care Provider [phone] Reason for Visit * Reason Onset Date Comments Quality 11/25/2023 HTN Patient needs Rx for needle tops. 11/25/2023 Encounter Details Date Type Department Care Team (Latest Contact Info) Description 11/25/2023 Clinical Communication Department of Family Medicine, [facility], in [place], [place] [address] [place] [address] Nehal Blevins, RStaciaNStacia Quality (HTN); Patient needs Rx for needle tops. Social History Tobacco Use Types Packs/Day Years [...] How often do you attend chur or catholic services? More than 4 times per year 08/06/2022 Do you belong to any clubs o r organizations such as tenriism groups, unions, fraternal or athletic groups, or [...] your living situation today? I have a [facility] place to live 08/25/2023 Education Answer [...] encounter Miscellaneous Notes * Telephone Encounter - Jason Torres L.P.N. - 12/14/2023 9:48 AM AIRPLANE RENTAL CLERK Call does not go through. Pharmacy order was placed, pharmacy will contact patient when order is ready to hot die picker. LANE RENTAL CLERK * Telephone Encounter - Christa De Leon - 12/07/2023 9:18 AM CST Patient came in today for appointment today. She stated that she her Rx for Liraglutide (Victoza 3 aurelia) did not come with needle tops. She was wondering if an Rx for needle tops could be sent to [facility] in [place]. Patient's phone number [phone]. LANE RENTAL CLERK * Telephone Encounter - Nehal Blevins R.N. - 11/25/2023 3:36 PM AIRPLANE RENTAL CLERK Left message for patient to return call to clinic. Does the patient need to speak to nursing? no Action needed: Snow Fence Erector called to see if patient was seen following triage phone discussion on 11/24/23- unable to leave voicemail when trying to call patient. Please encourage patient to schedule with PCP to review symptoms and recent readings. LANE RENTAL CLERK documented in this encounter Plan of Treatment Upcoming Encounters Date Type Department Care Team (Late st Contact Info) Description 04/16/2024 2:45 PM CDT Office Visit Department of Family Medicine in [place], [place] [address] [phone] Néstor Spears M.D. [address] [place] [phone] Mallika Evangelista, Pharm.D., BCACP, R.Ph. [address] [phone] documented as of this encounter Visit Diagnoses Not on filedocumented in this encounter Care Teams Power Plant Electrician Relationship Specialty Start Date End Date Néstor Spears M.D. [address] [place] [phone] PCP - General Family Medicine 07/23/22 documented as of this encounter
--- OUTSIDE RECORDS SUMMARY | 2024-03-16 19:05 | XMS_ITS | Encounter Summary ---
Author Organization [facility] Address [address] [place] [address] Care Team Providers Care Taxi Servicer Name Role Phone Néstor Spears M.D. Primary Care Provider [phone] Reason for Visit * Reason Onset Date Comments Rx Denial 11/14/2023 Ozempic Encounter Details Date Type Department Care Team (Latest Contact Info) Description 11/14/2023 Clinical Communication Department of Family Medicine, [facility], in [place], [place] [address] [place] [address] Néstor Spears M.D. [address] [place] [address] Rx Denial (Ozempic) Social History Tobacco Use Types Packs/Day Years [...] How often do you attend chur or pentecostalism services? More than 4 times per year 08/06/2022 Do you belong to any clubs o r organizations such as alevism groups, unions, fraternal or athletic groups, or [...] Answer Date Recorded PHQ-2 Score 0 10/22/2022 [facility] - [...] your living situation today? I have a [facility] place to live 08/25/2023 Education Answer Date [...] Office Visit Department of Family Medicine in [place], [place] [address], [place] [address] Néstor Spears M.D. [address] [place] [phone] Mallika Evangelista, Pharm.D., BCACP, R.Ph. [address], [place] [address] documented as of this encounter Visit Diagnoses Not on filedocumented in this encounter Care Teams Taxi Servicer Relationship Specialty Start Date End Date Néstor Spears M.D. [address] [place] [address] [place] [phone] PCP - General Family Medicine 07/23/22 documented as of this encounter
--- OUTSIDE RECORDS SUMMARY | 2024-03-16 19:05 | XMS_ITS | Encounter Summary ---
Author Organization [facility] Address [address] [place] [address] Care Team Providers Care Getterer Name Role Phone Néstor Spears M.D. Primary Care Provider Reason for Visit * Reason Comments Med Refill Encounter Details Date Type Department Care Team (Late st Contact Info) Description 12/13/2023 Refill Department of Family Medicine, [facility], in [place], [place] [address] [place] [phone] Néstor Spears M.D. [address] [place] [address] Med Refill Social History Tobacco Use Types [...] How often do you attend chur or cheondoism services? More than 4 times per year 08/06/2022 Do you belong to any clubs o r organizations such as sabianist groups, unions, fraternal or athletic groups, or [...] your living situation today? I have a [facility] place to live 08/25/2023 Education Answer [...] encounter Miscellaneous Notes * Telephone Encounter - Jena Chavez - 12/13/2023 10:08 AM CST Lab Results Component Value Date HGBA1C 10.0 (H) 09/01/2023 [facility] documented in this encounter Plan of Treatment Upcoming Encounters Date Type Department Care Team (Late st Contact Info) Description 04/16/2024 2:45 PM CDT Office Visit Department of Family Medicine in [place], [place] [address] [place] [address] Néstor Separs M.D. [address] [place] [phone] Mallika Evangelista A, Pharm.D., BCACP, R.Ph. [address] [address] documented as of this encounter Visit Diagnoses Not on filedocumented in this encounter Care Teams Getterer Relationship Specialty Start Date End Date Néstor Spears M.D. [address] [place] [phone] PCP - General Family Medicine 07/23/22 documented as of this encounter
--- OUTSIDE RECORDS SUMMARY | 2024-03-16 19:05 | XMS_ITS | Encounter Summary ---
Author Organization [facility] Address [address] [place] [address] Care Team Providers Care Skin Pass Operator Name Role Phone Néstor Spears M.D. Primary Care Provider Reason for Visit * Reason Onset Date Comments Free Style Tarsha 2 11/22/2023 Encounter Details Date Type Department Care Team (Latest Contact Info) Description 11/22/2023 Clinical Communication Department of Family Medicine, [facility], in [place], [place] [address] [place] [address] Néstor Spears M.D. [address] [place] [address] Free Style Tarsha 2 Social History Tobacco Use Types Packs/Day Years [...] often do you attend chur ch or moravian services? More than 4 times per year 08/06/2022 Do you belong to any clubs o r organizations such as yazidism groups, unions, fraternal or athletic groups, or [...] Answer Date Recorded PHQ-2 Score 0 10/22/2022 [facility]at ional Health - Occupational Stress [...] your living situation today? I have a [facility] place to live 08/25/2023 Education Answer [...] Office Visit Department of Family Medicine in [place], [place] [address] [place] [address] Néstor Spears M.D. [address] [place] [phone] Mallika Evangelista, Pharm.D., BCACP, R.Ph. [address] [place] [address] documented as of this encounter Visit Diagnoses Not on filedocumented in this encounter Care Teams Skin Pass Operator Relationship Specialty Start Date End Date Néstor Spears M.D. [address] [place] [address] [place] [phone] PCP - General Family Medicine 07/23/22 documented as of this encounter
== END 2024-03-16 20:18 | disposition home or self-care (01) ==
PROVIDERS: Emergency Provider Emergency Medicine; PCP Family Medicine
DX: N20.1 Calculus of ureter (principal)
CPT/HCPCS: 74176; 81001; 87086; 96372; 99283; 99284; A0425; A0427; J1885

== ENCOUNTER 2024-07-10 14:18 | Emergency (ER) | payer OTHER, SELFPAY ==
[2024-07-10 14:21] VITALS: BP 147/89; PULSE 82; RESP 18; TEMP 36.4; O2SAT 92; BMI 38.4
[2024-07-10 15:25] LABS: Appearance Urine Clear (Clear); Bilirubin Urine Negative (Negative); Blood Urine 3+ (Negative); Color Urine Red (Yellow); Glucose Urine Negative (Negative); Ketones Urine Negative (Negative); Leukocyte Esterase Urine Negative (Negative); Nitrite Urine Negative (Negative); Protein Urine Negative (Negative); Specific Gravity Urine <= 1.005 (1.000-1.030); Urobilinogen Urine 0.2 (0.2-1.0); pH Urine 5.5 (5.0-8.5)
--- NOTE | 2024-07-10 15:49 | CRLHL7_ITS ---
For Patients: As a result of the Cures Act, medical imaging exams and procedure reports are released immediately into your electronic medical record. You may view this report before your referring provider. If you have questions, please contact your health care provider. INDICATION: Right lower quadrant pain, previous appendectomy. TECHNIQUE: CT abdomen and pelvis acquired with 93 cc of Isovue 370 IV contrast. COMPARISON: None. FINDINGS: Lower chest: Subpleural atelectasis versus fibrotic changes in the lung bases. Liver: Unremarkable. Normal in size and attenuation. No suspicious masses. Gallbladder and bile ducts: Unremarkable. No stones or inflammation. No biliary dilatation. Pancreas: Unremarkable. No mass or inflammation. Spleen: Unremarkable. Normal in size. No masses. Adrenal glands: Unremarkable. No nodules. Kidneys: Punctate stone in the right proximal ureter with associated mild proximal hydronephrosis. Few other small nonobstructing right nephroliths. Focal scarring within the superior pole right kidney. Unremarkable left kidney. GI tract: Diverticulosis without pericolonic inflammation. No obstruction. Prior appendectomy. Vasculature: Abdominal aorta is normal in caliber. Mesenteric arteries are patent. Lymph nodes: No lymphadenopathy. Peritoneum/Abdominal Wall: Unremarkable. No free air or significant free fluid. Pelvis: Status post hysterectomy. Bones: Unremarkable for age. IMPRESSION: 1. Punctate stone in the right proximal ureter with associated mild proximal hydronephrosis. 2. Small additional nonobstructing right nephroliths. Please note that all CT scans at this facility use dose modulation, iterative reconstruction, and/or weight-based dosing when appropriate to reduce radiation dose to as low as reasonably achievable. Dictated by Drew Crowe MD @ 07/10/2024 7:24:33 PM (Electronically Signed)
[2024-07-10 16:11] LABS: Squamous Epithelial Cell Urine Few (None-Few)
[2024-07-10 16:22] LABS: Basophils Percent Auto 0.3 % (0.0-3.0); Hematocrit 43.9 % (33.0-51.0); Hemoglobin* 14.4 gm/dL (12.0-16.0); Immature Granulocytes Pct Auto 0.2 %; Lymphocytes Percent Auto 39.8 % (20-44); Mean Corpuscular HGB Conc 33 gm/dL (32-36); Mean Corpuscular Hemoglobin 30 pg (26-34); Mean Corpuscular Volume 92 fL (80-100); Monocytes Percent Auto 6.8 % (0.0-11.0); Neutrophils Percent Auto 50.9 % (42.0-72.0); Platelet Count* 277 K/uL (140-440); RDW Coefficient of Variation % 11.4 % (11.5-15.5); Red Blood Count 4.77 m/uL (4.00-5.20); White Blood Count* 17.13 K/uL (4.50-11.00)
--- OUTSIDE RECORDS SUMMARY | 2024-07-10 16:28 | XMS_ITS | Data Portability ---
Author Organization [facility], [employer] Address [address] [place] [address] Assessment No assessment recorded. Plan of Treatment Reminders Order Date Submit Date Provider Last Modified By Organization Details Last Modified Time Details Appointments None record ed. Lab None record ed. Referral None record ed. Procedures None record ed. Surgeries None record ed. Imaging None record ed. Medication Orders None record ed. Patient TargetsNo targets recorded. Patient InstructionsNo instructions recorded. Reason for Referral None Reported. Problems Name Problem SNOMED Code Status Onset Date Resolution Date Notes Provider Name and Address Organization Details Recorded Time Diabetic care Active [address] Vega 02/27/24 [facility] 4 11:40:10 Problem Notes None recorded. Medical Equipment None Reported. Allergies Allergen ID Allergen Name Allergen Category Reaction Reaction Severity Criticality Documentation Date Start Date Code Code System Note Provider Name and Address Organization Details Recorded Time Benadryl medicatio n Not available Not available Not available 03/02/2024 25310 7 RxNorm [facility] 4 11:39:00 61680 lisinopri l medicatio n Not available Not available Not available 03/02/2024 49121 RxNorm Jahaira gilliam [facility] 4 11:39:27 Medications Name Sig Start Date Stop [...] Available N ot Available BD Regular Bevel [place] 25 gauge x 1 1/2 USE INSTRUCTED [...] Available No t Available FreeStyle Tarsha 2 [place] USE TO TEST BLOOD SUGAR active Not Available Not Available Not Available Vitals Date Recorded Body height Body mass index (BMI) Body weight Provider Name and Address Organization Details Last Updated DateTime 03/02/2024 149.86 cm 40.4 kg/m2 93176.47 g Jahaira Tom [place] [facility] 03/02/2024 11:35:32 Social History None recorded. Functional Status None recorded. Mental Status None recorded. Family History Nothing Reported. Medical History No medical history recorded. Gynecological HistoryNo gynecological history recorded. Obstetrics History GPAL:G 0 P 0 0 0 0 Past Encounters Encounter ID Performer Location Encounter Start Date Encounter Closed Date Diagnosis/Indication Diagnosis SNOMED-CT Code Diagnosis ICD10 Code [id number] JAMAL HINOJOSA DPM [facility] [address] [place] [address] 03/02/2024 11:34:12 03/05/2024 10:53:17 Onychomycosis 632563244 B35.1 Ingrowing nail 229545888 L60.0 Pain in toe 199408572 M7 9.675 Pain of to e of left foot 4987547846 70217 M79.675 Type 2 yessenia betes mellitus 34725315 E11.9 Health Concerns Section Related Observation LastModified by Organization Detai ls LastModified Time None Recorded Concern Status LastModified by Organization Details LastModified Time None Recorded Advance Directives Directive None Recorded Payers Encounter Date Sequence Insurance Name Policy Number Policy Harrison Covered Member ID Harrison Member ID Guarantor Name 03/02/2024 1 [facility] [id number] Lidia Stratford Notes Date Note Type Note Provider Name [...] a known DM. JAMAL HINOJOSA DPM [address] [place], [address], [facility] 03/02/2024 13:19:23 OBGyn Episode No OBEpisode recorded.
[2024-07-10] MEDS: KETOROLAC 15 MG/ML inj IVP (16:30)
[2024-07-10] MEDS: LACTATED RINGERS 1000 ML 1,000 ML IV (16:31)
[2024-07-10 16:38] LABS: Albumin* 4.7 g/dL (3.3-5.0); Chloride* 98 mmol/L (96-114)
[2024-07-10 16:39] LABS: Potassium* 3.5 mmol/L (3.6-5.1); Sodium* 137 mmol/L (135-149)
[2024-07-10 16:41] LABS: Alkaline Phosphatase* 76 U/L (40-150); Anion Gap 11 mEq/L (7-15); Aspartate Amino Transferase* 27 U/L (12-35); Bilirubin Total* 0.4 mg/dL (0.1-1.5); Blood Urea Nitrogen* 24 mg/dL (7-30); Carbon Dioxide* 28 mmol/L (20-32); Creatinine* 1.1 mg/dL (0.5-1.5); Est. Creatinine Clearance* 74.92; Estimated Glomerular Filt Rate 58 ml/min; Total Protein* 8.4 g/dL (6.0-8.3)
[2024-07-10 16:42] LABS: Alanine Aminotransferase* 19 U/L (4-35); Calcium* 10.5 mg/dL (8.4-10.6); Glucose* 75 mg/dL (60-115)
[2024-07-10 16:48] LABS: Slide Review Reflex Yes
--- NOTE | 2024-07-10 16:55 | ED_ITS ---
HPI - General Adult General Date Seen: 07/10/24 Chief complaint: Urogenital Problems, Female Stated complaint: blood in urine Time Seen by Provider: 07/10/24 15:35 Source: patient Mode of arrival: ambulatory Limitations: no limitations History of Present Illness HPI narrative: Patient is a 59-year-old female presenting to the emergency department for right lower quadrant abdominal pain. She states the symptoms started abruptly few hours ago. States this feels just like her previous kidney stone from 3 months prior. Previously though she states the pain is in her right flank and this time it is in the right lower quadrant. Has had previous appendectomy. Notes that right when she started noticing the pain she was peeing bright red blood in his since then her urine has been more pinkish discoloration. Has not had bloody diarrhea before. Denies any pain with urination. Has taking ibuprofen for pain with minimal improvement. Denies lightheadedness, dizziness, chest pain, shortness of breath, diarrhea, constipation, nausea/vomiting, weakness, numbness. States she has been drinking fluids without issues but not been eating as much because she has not had much of an appetite. Last bowel movement this morning was normal she states. No other concerns noted at this time. Related Data Home Medications ?Medication ?Instructions ?Recorded ?Confirmed aspirin 81 mg capsule 81 mg PO DAILY 12/12/23 03/16/24 atenolol 100 mg tablet 100 mg PO DAILY 12/12/23 03/16/24 atorvastatin 10 mg tablet 10 mg PO QHS 12/12/23 03/16/24 chlorthalidone 50 mg tablet 50 mg PO DAILY 12/12/23 03/16/24 glipizide 10 mg tablet 10 mg PO DAILY 12/12/23 03/16/24 ipratropium bromide 21 mcg (0.03 2 spray intranasal BID PRN 12/12/23 03/16/24 %) nasal spray spironolactone 50 mg tablet 50 mg PO DAILY 12/12/23 03/16/24 tiotropium bromide 2.5 2 inh inhalation DAILY 12/12/23 03/16/24 mcg/actuation mist for inhalation (Spiriva Respimat) Previous Rx's ?Medication ?Instructions ?Recorded tamsulosin 0.4 mg capsule 0.4 mg PO DAILY #7 caps 07/10/24 Allergies Allergy/AdvReac Type Severity Reaction Status Date / Time diphenhydramine Allergy Severe Face and Verified 07/10/24 17:21 [From Benadryl] Throat Swelling lisinopril Allergy Intermediate Facial Verified 07/10/24 17:21 Swelling Review of Systems Status of ROS: Reports: 10 or more systems reviewed and unremarkable except as noted in History and below [facility] Medical History Thrombocytopenia ?D69.6 - Thrombocytopenia, unspecified (ICD-10) Acute respiratory failure with hypoxia ?J96.01 - Acute respiratory failure with hypoxia (ICD-10) Menometrorrhagia ?N92.1 - Excessive and frequent menstruation with irregular cycle (ICD-10) Uterine leiomyoma ?D25.9 - Leiomyoma of uterus, unspecified (ICD-10) Anemia ?D64.9 - Anemia, unspecified (ICD-10) Vitamin D deficiency ?E55.9 - Vitamin D deficiency, unspecified (ICD-10) Type 2 diabetes mellitus ?E11.9 - Type 2 diabetes mellitus without complications (ICD-10) Hypertension ?I10 - Essential (primary) hypertension (ICD-10) Surgical History History of total abdominal hysterectomy ?Z90.710 - Acquired absence of both cervix and uterus (ICD-10) History of salpingoophorectomy ?Z90.79 - Acquired absence of other genital organ(s) (ICD-10) ?Z90.721 - Acquired absence of ovaries, unilateral (ICD-10) History of arthroscopic knee surgery ?Z98.890 - Other specified postprocedural states (ICD-10) History of section ?Z98.891 - History of uterine scar from previous surgery (ICD-10) History of appendectomy ?Z90.49 - Acquired absence of other specified parts of digestive tract (ICD- 10) S/P BRIDGER-BSO (total abdominal hysterectomy and bilateral salpingo-oophorectomy) ?Z90.710 - Acquired absence of both cervix and uterus (ICD-10) ?Z90.722 - Acquired absence of ovaries, bilateral (ICD-10) ?Z90.79 - Acquired absence of other genital organ(s) (ICD-10) Social History Smoking Status: Former smoker Do you use any of these nicotine containing products: None Second hand tobacco smoke exposure: No How often do you have a drink containing alcohol: never AUDIT-C Alcohol total score: 0 Non-prescribed substance use: former substance user service: No Exam Narrative: Exam Narrative: Const: Well-nourished, Well-developed, in mild distress Eyes: PERRL, no conjunctival injection, and symmetrical lids HENT: Atraumatic external nose and ears. Moist mucous membranes. Neck: Symmetric, trachea midline, No thyromegaly. CVS: RRR, No murmurs or gallops. Peripheral pulses 2+ and equal in all extremities RESP: Unlabored respiratory effort. Clear to auscultation bilaterally. GI: Right lower quadrant tenderness, Nondistended, No rebound or guarding. No CVA tenderness MSK:Extremities w/o deformity, Normal Active ROM Skin: Warm, Dry. No rashes or lesions. Neuro: Normal Muscle tone, No focal neurological deficits. Psych: Awake, Alert, & Oriented x3. Appropriate mood and affect. Const: Vital Signs, click to edit/add: Vital Signs - 24 hr 07/10/24 14:21 07/10/24 18:04 Temperature 97.5 F L 98 F Pulse Rate [Pulse Oximeter] 82 80 Respiratory Rate 18 22 Blood Pressure [Le ft Upper Arm] 143/88 H Blood Pressure [Ri ght Upper Arm] 147/89 H Pulse Oximetry 92 90 Oxygen Delivery Me thod Room Air Room Air Course Vital Signs Vital signs: Initial Vital Signs Temperature 97.5 F L 07/10/24 14:21 Temperature Source Temporal Artery Scan 07/10/24 14:21 Pulse Rate 82 07/10/24 14:21 Respiratory Rate 18 07/10/24 14:21 Blood Pressure 147/89 H 07/10/24 14:21 Blood Pressure Mean 108 H 07/10/24 14:21 Blood Pressure Position Sitting 07/10/24 14:21 Pulse Oximetry 92 07/10/24 14:21 Oxygen Delivery Method Room Air 07/10/24 14:21 Vital Signs Temperature 97.5 F L 07/10/24 14:21 Pulse Rate 82 07/10/24 14:21 Respiratory Rate 18 07/10/24 14:21 Blood Pressure 147/89 H 07/10/24 14:21 Pulse Oximetry 92 07/10/24 14:21 Oxygen Delivery Method Room Air 07/10/24 14:21 Temperature 98 F 07/10/24 18:04 Pulse Rate 80 07/10/24 18:04 Respiratory Rate 22 07/10/24 18:04 Blood Pressure 143/88 H 07/10/24 18:04 Pulse Oximetry 90 07/10/24 18:04 Oxygen Delivery Method Room Air 07/10/24 18:04 Medications Administered Medications: Discontinued Medications Generic Name Dose Route Start Last Admin Trade Name Stanislav PRN Reason Stop Dose Admin Lactated Ringer's 1,000 mls @ 1,000 mls/hr 07/10/24 15:49 07/10/24 16:31 Lactated Ringers 1000 Ml IV 07/10/24 16:48 1,000 mls/hr .Q1H ONE Administration Ketorolac Tromethamine 15 mg 07/10/24 15:49 07/10/24 16:30 Ketorolac 15 Mg/Ml Inj IVP 07/10/24 15:50 15 mg ONCE ONE Administration Medical Decision Making [facility] Narrative Medical decision making narrative: Patient is a 59-year-old female presenting for right lower quadrant abdominal pain and hematuria. She states symptoms started this morning. She states the hematuria is improving. Has had previous appendectomy but will do CTA scan with IV contrast to look for any abnormalities. Differential includes stump appen dicitis, nephrolithiasis, SBO, bladder cancer. Will do a CBC, CMP, urinalysis. Toradol given for pain. Was given 1 L of normal saline. Is not having any flank pain and pyelonephritis seems unlikely at this time She does an elevated white count at 17 but no clear signs of infections. There is blood in her urine but no signs of a UTI. Kidney function within normal limits and the rest of her CMP shows no concerning findings. Her pain improved with the Toradol. CT scan shows a punctate stone causing some mild hydronephrosis consistent with where her pain is. At this time this is most lik ita the cause of her symptoms and she will be discharged with Toradol and Zofran through instymeds and Flomax to her pharmacy. She is agreeable to this plan. Lab Data Labs: Lab Results 07/10/24 07/10/24 Range/Units 14:45 16:15 WBC 17.13 H (4.50-11.00) K/uL RBC 4.77 (4.00-5.20) m/uL Hgb 14.4 (12.0-16.0) gm/dL Hct 43.9 (33.0-51.0) % MCV 92 (80-100) fL MCH 30 (26-34) pg MCHC 33 (32-36) gm/dL RDW Coeff of Michael 11.4 L (11.5-15.5) % Plt Count 277 (140-440) K/uL Neut % (Auto) 50.9 (42.0-72.0) % Lymph % (Auto) 39.8 (20-44) % [place] % (Auto) 6.8 (0.0-11.0) % Eos % (Auto) 2.0 (0.0-7.0) % Baso % (Auto) 0.3 (0.0-3.0) % Neut # (Auto) 8.70 H (1.7-7.0) K/uL Lymph # (Auto) 6.80 H (0.90-2.90) K/uL [place] # (Auto) 1.20 H (0.00-0.90) K/UL Eos # (Auto) 0.30 (0.00-0.50) K/uL Baso # (Auto) 0.10 (0.00-0.30) K/uL Abs Immat Gran (auto) 0.00 (0.00-0.30) K/uL Imm/Tot Granulo (auto) 0.2 % Diff Slide Review Acceptable Review (Acceptable) Sodium 137 (135-149) mmol/L Potassium 3.5 L (3.6-5.1) mmol/L Chloride 98 (96-114) mmol/L Carbon Dioxide 28 (20-32) mmol/L Anion Gap 11 (7-15) mEq/L BUN 24 (7-30) mg/dL Creatinine 1.1 (0.5-1.5) mg/dL Estimated Creat Clear 74.92 Estimated GFR 58 ml/min Glucose 75 (60-115) mg/dL Calcium 10.5 (8.4-10.6) mg/dL Total Bilirubin 0.4 (0.1-1.5) mg/dL AST 27 (12-35) U/L ALT 19 (4-35) U/L Alkaline Phosphatase 76 (40-150) U/L Total Protein 8.4 H (6.0-8.3) g/dL Albumin 4.7 (3.3-5.0) g/dL Urine Color Red A (Yellow) Urine Appearance Clear (Clear) Urine pH 5.5 (5.0-8.5) Ur Specific [place] <= 1.005 (1.000-1.030) Urine Protein Negative (Negative) Urine Glucose (UA) Negative (Negative) Urine Ketones Negative (Negative) Urine Blood 3+ A (Negative) Urine Nitrite Negative (Negative) Urine Bilirubin Negative (Negative) Urine Urobilinogen 0.2 (0.2-1.0) Ur Leukocyte Esterase Negative (Negative) Urine RBC 2-5 A (0-2) Urine WBC 2-5 (0-5) Ur Squamous Epith Cells Few (None-Few) Urine Bacteria None (None) Imaging Data CT scan abdomen and pelvis: Attestation: I have reviewed the pertinent imaging results. Radiologist's impression: 1. Punctate stone in the right proximal ureter with associated mild proximal hydronephrosis. 2. Small additional nonobstructing right nephroliths. Please note that all CT scans at this facility use dose modulation, iterative reconstruction, and/or weight-based dosing when appropriate to reduce radiation dose to as low as reasonably achievable. Dictated by Drew Crowe MD @ 07/10/2024 7:24:33 PM Discharge Plan Discharge Clinical Impression: Urethral calculus Patient Disposition: Home, Self-Care Condition: Improved Instructions: How to Strain Your Urine (ED) Additional Instructions: Take Tylenol and Toradol for her pain. While you are taking Toradol do not take ibuprofen or other NSAIDs as there same class of drugs. Use the Flomax as directed. Return to emergency department for new or worsening symptoms. This stone should be able the pass on its own but continue to take the Flomax until it does pass. Prescriptions: New tamsulosin 0.4 mg capsule 0.4 mg PO DAILY Qty: 7 1RF No Action atorvastatin 10 mg tablet 10 mg PO QHS atenolol 100 mg tablet 100 mg PO DAILY spironolactone 50 mg tablet 50 mg PO DAILY glipizide 10 mg tablet 10 mg PO DAILY chlorthalidone 50 mg tablet 50 mg PO DAILY aspirin 81 mg capsule 81 mg PO DAILY ipratropium bromide 21 mcg (0.03 %) spray,non-aerosol 2 spray intranasal BID PRN Rx Instructions: administer into each nostril Spiriva Respimat 2.5 mcg/actuation mist 2 inh inhalation DAILY Follow Up/Referrals: Néstor Spears MD [Primary Care Provider] - Stand Alone Forms: Renrendai Info Instructions
[2024-07-10 16:57] LABS: Slide Review Acceptable Review (Acceptable)
[2024-07-10 18:04] VITALS: BP 143/88; PULSE 80; RESP 22; TEMP 36.6; O2SAT 90
[2024-07-10] MEDS: TAMSULOSIN HCL 0.4 MG CAPSULE PO (19:35)
== END 2024-07-10 19:42 | disposition home or self-care (01) ==
PROVIDERS: Emergency Provider Student in an Organized Health Care Education/Training Program; PCP Family Medicine
DX: N21.1 Calculus in urethra (principal)
CPT/HCPCS: 36415; 74177; 80053; 81001; 85025; 96374; 99283; 99284; 99285; A9270; J1885; J7120; Q9967